=== PATIENT | female | born 1950 | race Two or more races ===

== ENCOUNTER 2021-10-12 18:57 | Inpatient (IN) | payer OTHER, MEDICAID ==
[~2021-10-12] VITALS: Ht 147.3 cm; Wt 106.8 kg
[2021-10-12] MEDS ORDERED: methylPREDNISolone SOD SUCC 125 MG/2 ML VL IV ONE (19:15)
[2021-10-12 20:27] LABS: Basophils # (auto) 0 10 ^3/uL (0-0.2); Basophils % (auto) 0.6 % (0.0-2.0); Eosinophils # (auto) 0.2 10 ^3/uL (0-0.8); Eosinophils % (auto) 3.2 % (0.0-7.0); Hematocrit 30.7 % (36.0-46.0); Hemoglobin 10.1 g/dL (12.2-16.2); Lymphocytes # (auto) 1.5 10 ^3/uL (0.4-5.4); Lymphocytes % (auto) 28.1 % (10.0-50.0); Mean Corpuscular Hemoglobin 28.5 pg (28.0-32.0); Mean Corpuscular Hgb Conc. 32.9 g/dL (32.0-36.0); Mean Corpuscular Volume 86.7 fL (80.0-100.0); Monocytes # (auto) 0.4 10 ^3/uL (0-1.3); Monocytes % (auto) 6.6 % (0.0-12.0); Neutrophils # (auto) 3.3 10 ^3/uL (1.6-8.6); Neutrophils % (auto) 61.5 % (37.0-80.0); Nucleated Red Blood Cells % 0.1 %; Red Blood Cells 3.53 10^6/uL (4.0-5.20); Red Cell Distribution Width 13.4 % (11.8-14.3); White Blood Cell 5.3 10^3/uL (4.4-10.8)
[2021-10-12] MEDS ORDERED: FUROSEMIDE 40 MG/4 ML VIAL IV ONE (20:30)
[2021-10-12 20:51] LABS: CRP High Sensitivity 8.02 mg/dL (< 0.3)
[2021-10-12 21:03] LABS: Albumin 2.8 g/dL (3.4-5.0); Calcium 8.5 mg/dL (8.5-10.1); Potassium 4.2 mmol/L (3.5-5.1)
[2021-10-12 21:06] LABS: Bilirubin, Total 0.2 mg/dL (0.2-1.0); Total Protein 7.4 g/dL (6.4-8.2)
[2021-10-12] MEDS ORDERED: IOHEXOL 350 MG/ML 100ML IJ ONE (21:54)
[2021-10-12] MEDS ORDERED: NITROGLYCERIN 0.4 MG SL TAB SL PRN (23:30)
[2021-10-12] MEDS ORDERED: TEMAZEPAM 15 MG CAP PO PRN (23:30)
[2021-10-12] MEDS ORDERED: ACETAMINOPHEN 325 MG TAB PO PRN (23:30)
[2021-10-12] MEDS ORDERED: DEXTROSE (50%) 50ML SYRG IV PRN (23:30)
[2021-10-12] MEDS ORDERED: MORPHINE SULFATE INJECTION 2 MG/ML SYRG IV PRN (23:30)
[2021-10-12] MEDS ORDERED: ONDANSETRON HCL 4 MG/2 ML VIAL IV PRN (23:30)
[2021-10-12] MEDS ORDERED: ALBUTEROL SULF 2.5 MG/0.5ML(0.5%) NEB SOLN NEB PRN (23:30)
[2021-10-13 01:45] LABS: Urine Bacteria NONE SEEN /hpf (None Seen); Urine Blood Negative /uL (Negative); Urine Specific Gravity 1.018 (1.001-1.035); Urine WBC 18 /hpf (0 - 5); Urine WBC Clumps PRESENT /hpf (None Seen)
[2021-10-13] MEDS: AZITHROMYCIN 500MG/ 250ML 250 ML IV SCH ×2 (02:30→21:42)
[2021-10-13] MEDS ORDERED: ALBUTEROL SULF HFA 90MCG INH 200DOSE IN PRN (04:45)
[2021-10-13] MEDS: FUROSEMIDE 20 MG/2 ML VIAL IV SCH ×2 (06:47→21:41)
[2021-10-13] MEDS: ACCU-CHEK COMFORT CURVE STRIP VI SCH ×3 (07:12→23:16)
[2021-10-13] MEDS: InsuLIN REG 1unit/0.01ml Soln (100units/ml) SC SCH ×3 (07:12→23:24)
[2021-10-13 07:34] LABS: Basophils # (auto) 0 10 ^3/uL (0-0.2); Basophils % (auto) 0.3 % (0.0-2.0); Eosinophils # (auto) 0 10 ^3/uL (0-0.8); Eosinophils % (auto) 0.2 % (0.0-7.0); Hematocrit 32.9 % (36.0-46.0); Hemoglobin 11.2 g/dL (12.2-16.2); Lymphocytes # (auto) 0.8 10 ^3/uL (0.4-5.4); Lymphocytes % (auto) 16.9 % (10.0-50.0); Mean Corpuscular Hemoglobin 29.3 pg (28.0-32.0); Mean Corpuscular Volume 86.2 fL (80.0-100.0); Monocytes # (auto) 0.1 10 ^3/uL (0-1.3); Monocytes % (auto) 1.4 % (0.0-12.0); Neutrophils % (auto) 81.2 % (37.0-80.0); Nucleated Red Blood Cells % 0.1 %; Red Blood Cells 3.82 10^6/uL (4.0-5.20); Red Cell Distribution Width 13.4 % (11.8-14.3); White Blood Cell 4.9 10^3/uL (4.4-10.8)
[2021-10-13 07:46] LABS: Albumin 3.2 g/dL (3.4-5.0); Calcium 9.3 mg/dL (8.5-10.1); Potassium 3.8 mmol/L (3.5-5.1)
[2021-10-13 07:50] LABS: Bilirubin, Total 0.3 mg/dL (0.2-1.0); Total Protein 8.6 g/dL (6.4-8.2)
[2021-10-13] MEDS ORDERED: PANTOPRAZOLE 40 MG TAB PO SCH (10:00)
[2021-10-13] MEDS: CARVEDILOL 3.125 MG TAB PO SCH ×2 (10:30→21:42)
[2021-10-13] MEDS: ENOXAPARIN SOD 40 MG/0.4 ML SYRINGE SC SCH (10:31)
[2021-10-13] MEDS ORDERED: SOD CHL 0.9%/ KCL 40MEQ 1,000 ML IV SCH (10:45)
[2021-10-13] MEDS ORDERED: CEFTRIAXONE SODIUM 2 GM in D5W 5% 50 ML IV ONE (11:00)
[2021-10-13] MEDS ORDERED: CHOLECALCIFEROL (VITD3) 2,000 UNIT CAP/TAB PO ONE (14:52)
[2021-10-13] MEDS ORDERED: ZINC SULFATE 220mg CAP or TAB PO ONE (14:52)
[2021-10-13] MEDS ORDERED: DexAMETHasone SOD PHOS 10MG/1ML VIAL INJ IV ONE (14:52)
[2021-10-13] MEDS ORDERED: IVERMECTIN 3 MG TAB PO ONE (14:52)
[2021-10-13] MEDS ORDERED: ASCORBIC ACID 1,000 MG TAB PO ONE (14:52)
[2021-10-13] MEDS ORDERED: DEXTROSE (50%) 50ML SYRG IV PRN (15:00)
[2021-10-13] MEDS ORDERED: REMDESIVIR PER PHARMACY 0 ML IV SCH (15:00)
[2021-10-13] MEDS ORDERED: REMDESIVIR 200 MG in NS 210ml LOADING DOSE ADULT IV ONE (17:00)
[2021-10-13 20:00] VITALS: BP 132/70
[2021-10-13] MEDS: BUDESONIDE (INHALATION) 180 MCG IH IN SCH (20:28)
[2021-10-13] MEDS: ALBUTEROL SULF HFA 90MCG INH 200DOSE IN PRN (20:29)
[2021-10-13 21:30] VITALS: BP 132/70
[2021-10-13] MEDS: INSULIN LANTUS (GLARGINE) 1 /0.01ml (100units/ml) SC SCH (22:55)
[2021-10-14 00:55] VITALS: BP 132/70
[2021-10-14 05:00] VITALS: BP 140/73
[2021-10-14] MEDS: FUROSEMIDE 20 MG/2 ML VIAL IV SCH (05:30)
[2021-10-14] MEDS: ACCU-CHEK COMFORT CURVE STRIP VI SCH ×3 (05:41→17:45)
[2021-10-14] MEDS: InsuLIN REG 1unit/0.01ml Soln (100units/ml) SC SCH ×4 (05:53→23:06)
[2021-10-14 07:51] LABS: Basophils # (auto) 0 10 ^3/uL (0-0.2); Basophils % (auto) 0.2 % (0.0-2.0); Eosinophils # (auto) 0 10 ^3/uL (0-0.8); Hematocrit 32.3 % (36.0-46.0); Hemoglobin 10.6 g/dL (12.2-16.2); Lymphocytes # (auto) 1.4 10 ^3/uL (0.4-5.4); Mean Corpuscular Hemoglobin 28.4 pg (28.0-32.0); Mean Corpuscular Hgb Conc. 32.9 g/dL (32.0-36.0); Mean Corpuscular Volume 86.3 fL (80.0-100.0); Monocytes # (auto) 0.4 10 ^3/uL (0-1.3); Monocytes % (auto) 7.7 % (0.0-12.0); Neutrophils # (auto) 3.6 10 ^3/uL (1.6-8.6); Neutrophils % (auto) 66.1 % (37.0-80.0); Red Blood Cells 3.74 10^6/uL (4.0-5.20); Red Cell Distribution Width 13.5 % (11.8-14.3); White Blood Cell 5.4 10^3/uL (4.4-10.8)
[2021-10-14 08:07] LABS: Albumin 2.8 g/dL (3.4-5.0); Calcium 9.1 mg/dL (8.5-10.1); Magnesium 2.4 mg/dL (1.6-2.6)
[2021-10-14 08:11] LABS: INR 1.07 (0.9-1.15)
[2021-10-14 08:23] LABS: BUN/Creatinine Ratio 25.7; Bilirubin, Total 0.2 mg/dL (0.2-1.0); CRP High Sensitivity 4.73 mg/dL (< 0.3); Total Protein 7.9 g/dL (6.4-8.2)
[2021-10-14 08:26] LABS: Thyroid Stimulating Hormone 0.28 uIU/mL (0.358-3.74)
[2021-10-14 08:30] VITALS: BP 143/64
[2021-10-14] MEDS: DexAMETHasone SOD PHOS 10MG/1ML VIAL INJ IV SCH (09:31)
[2021-10-14] MEDS: ZINC SULFATE 220mg CAP or TAB PO SCH (09:31)
[2021-10-14] MEDS: CHOLECALCIFEROL (VITD3) 2,000 UNIT CAP/TAB PO SCH (09:31)
[2021-10-14] MEDS: IVERMECTIN 3 MG TAB PO SCH (09:31)
[2021-10-14] MEDS: ENOXAPARIN SOD 40 MG/0.4 ML SYRINGE SC SCH (09:32)
[2021-10-14] MEDS: ASCORBIC ACID 1,000 MG TAB PO SCH (09:32)
[2021-10-14] MEDS: CARVEDILOL 3.125 MG TAB PO SCH ×2 (09:42→22:59)
[2021-10-14] MEDS: BUDESONIDE (INHALATION) 180 MCG IH IN SCH ×2 (10:00→19:34)
[2021-10-14] MEDS ORDERED: ATO40T PO (12:20)
[2021-10-14] MEDS ORDERED: OXYB5TAB61 PO (12:20)
[2021-10-14] MEDS ORDERED: HYDR200T36 PO (12:20)
[2021-10-14] MEDS ORDERED: PROC10TA2 PO (12:20)
[2021-10-14] MEDS ORDERED: BIOT50007 PO (12:20)
[2021-10-14] MEDS ORDERED: CITA-77 PO (12:20)
[2021-10-14] MEDS ORDERED: ASCO500T11 PO (12:20)
[2021-10-14] MEDS ORDERED: GABA300C10 PO (12:20)
[2021-10-14] MEDS ORDERED: VITA180C PO (12:20)
[2021-10-14] MEDS ORDERED: ZINC50CA2 PO (12:20)
[2021-10-14] MEDS ORDERED: PANT40TA2 PO (12:20)
[2021-10-14] MEDS ORDERED: FURO1TAB31 PO (12:20)
[2021-10-14] MEDS ORDERED: MECL12.514 PO (12:20)
[2021-10-14] MEDS ORDERED: MULT-733 PO (12:20)
[2021-10-14] MEDS ORDERED: TOPI25TA84 PO (12:20)
[2021-10-14] MEDS ORDERED: CYAN100056 PO (12:20)
[2021-10-14] MEDS ORDERED: LORA-622 PO (12:20)
[2021-10-14] MEDS ORDERED: INSU1INJ19 SC (12:20)
[2021-10-14] MEDS ORDERED: ASPI-543 PO (12:20)
[2021-10-14] MEDS ORDERED: CHOL1TAB30 PO (12:20)
[2021-10-14] MEDS ORDERED: LOSA-39 PO (12:20)
[2021-10-14] MEDS: CEFTRIAXONE SODIUM 2 GM in D5W 5% 50 ML IV SCH (12:22)
[2021-10-14 12:30] VITALS: BP 126/67
[2021-10-14] MEDS ORDERED: guaiFENesin-DM 100/10mg/5ml SYR PO PRN (12:30)
[2021-10-14] MEDS: ALBUTEROL SULF HFA 90MCG INH 200DOSE IN PRN (13:58)
[2021-10-14 17:43] VITALS: BP 138/63
[2021-10-14] MEDS: REMDESIVIR 100mg 100 MG in SODIUM CHL 0.9% 230 ML IV SCH (17:45)
[2021-10-14 21:08] VITALS: BP 143/74
[2021-10-14] MEDS: AZITHROMYCIN 500MG/ 250ML 250 ML IV SCH (22:56)
[2021-10-14] MEDS: INSULIN LANTUS (GLARGINE) 1 /0.01ml (100units/ml) SC SCH (23:06)
[2021-10-15] MEDS: ACCU-CHEK COMFORT CURVE STRIP VI SCH ×5 (00:02→23:17)
[2021-10-15 04:50] VITALS: BP 148/69
[2021-10-15] MEDS: InsuLIN REG 1unit/0.01ml Soln (100units/ml) SC SCH ×3 (06:28→17:58)
[2021-10-15 07:10] LABS: Potassium 3.7 mmol/L (3.5-5.1)
[2021-10-15 07:15] LABS: Albumin 2.8 g/dL (3.4-5.0); BUN/Creatinine Ratio 32.1; Bilirubin, Total 0.2 mg/dL (0.2-1.0); Calcium 9.1 mg/dL (8.5-10.1); Total Protein 7.6 g/dL (6.4-8.2)
[2021-10-15] MEDS: BUDESONIDE (INHALATION) 180 MCG IH IN SCH ×2 (08:31→19:04)
[2021-10-15] MEDS: ALBUTEROL SULF HFA 90MCG INH 200DOSE IN PRN ×2 (08:31→19:04)
[2021-10-15 08:40] VITALS: BP 143/82
[2021-10-15] MEDS: CARVEDILOL 3.125 MG TAB PO SCH ×2 (09:50→23:17)
[2021-10-15] MEDS: ZINC SULFATE 220mg CAP or TAB PO SCH (09:50)
[2021-10-15] MEDS: IVERMECTIN 3 MG TAB PO SCH (09:50)
[2021-10-15] MEDS: CHOLECALCIFEROL (VITD3) 2,000 UNIT CAP/TAB PO SCH (09:51)
[2021-10-15] MEDS: ASCORBIC ACID 1,000 MG TAB PO SCH (09:54)
[2021-10-15] MEDS: DexAMETHasone SOD PHOS 10MG/1ML VIAL INJ IV SCH (09:55)
[2021-10-15] MEDS: FUROSEMIDE 20 MG/2 ML VIAL IV SCH (09:55)
[2021-10-15] MEDS: CEFTRIAXONE SODIUM 2 GM in D5W 5% 50 ML IV SCH (09:57)
[2021-10-15] MEDS: ENOXAPARIN SOD 40 MG/0.4 ML SYRINGE SC SCH (09:58)
[2021-10-15 13:00] VITALS: BP 131/77
[2021-10-15] MEDS ORDERED: DEXT1SYP9 PO (13:55)
[2021-10-15] MEDS ORDERED: LEVO750T8 PO (13:55)
[2021-10-15] MEDS ORDERED: DEX4T PO (13:55)
[2021-10-15] MEDS ORDERED: ALBUAER3 IN (13:55)
[2021-10-15] MEDS: REMDESIVIR 100mg 100 MG in SODIUM CHL 0.9% 230 ML IV SCH (16:00)
[2021-10-15 16:40] VITALS: BP 132/65
[2021-10-15] MEDS: AZITHROMYCIN 500MG/ 250ML 250 ML IV SCH (23:16)
[2021-10-15] MEDS: INSULIN LANTUS (GLARGINE) 1 /0.01ml (100units/ml) SC SCH (23:37)
[2021-10-16] MEDS: ACCU-CHEK COMFORT CURVE STRIP VI SCH ×5 (00:40→23:48)
[2021-10-16] MEDS: InsuLIN REG 1unit/0.01ml Soln (100units/ml) SC SCH ×5 (00:43→23:48)
[2021-10-16 05:00] VITALS: BP 148/76
[2021-10-16 05:28] LABS: Hematocrit 33.6 % (36.0-46.0); Hemoglobin 11.3 g/dL (12.2-16.2)
[2021-10-16] MEDS: BUDESONIDE (INHALATION) 180 MCG IH IN SCH ×2 (06:00→20:55)
[2021-10-16 06:01] LABS: Albumin 2.9 g/dL (3.4-5.0); BUN/Creatinine Ratio 32.6; Bilirubin, Total 0.3 mg/dL (0.2-1.0); CRP High Sensitivity 1.11 mg/dL (< 0.3); Calcium 9.3 mg/dL (8.5-10.1); Magnesium 3.3 mg/dL (1.6-2.6); Total Protein 7.5 g/dL (6.4-8.2)
[2021-10-16] MEDS: ALBUTEROL SULF HFA 90MCG INH 200DOSE IN PRN ×2 (06:07→20:55)
[2021-10-16 08:00] VITALS: BP 159/78
[2021-10-16] MEDS: hydrALAZINE HCL 20 MG/ML VL IV PRN (08:21)
[2021-10-16] MEDS: FUROSEMIDE 20 MG/2 ML VIAL IV SCH (08:47)
[2021-10-16] MEDS: CHOLECALCIFEROL (VITD3) 2,000 UNIT CAP/TAB PO SCH (08:47)
[2021-10-16] MEDS: DexAMETHasone SOD PHOS 10MG/1ML VIAL INJ IV SCH (08:47)
[2021-10-16] MEDS: IVERMECTIN 3 MG TAB PO SCH (08:47)
[2021-10-16] MEDS: CARVEDILOL 3.125 MG TAB PO SCH ×2 (08:48→21:56)
[2021-10-16] MEDS: ZINC SULFATE 220mg CAP or TAB PO SCH (08:49)
[2021-10-16] MEDS: ENOXAPARIN SOD 40 MG/0.4 ML SYRINGE SC SCH (08:49)
[2021-10-16] MEDS: ASCORBIC ACID 1,000 MG TAB PO SCH (08:49)
[2021-10-16] MEDS: CEFTRIAXONE SODIUM 2 GM in D5W 5% 50 ML IV SCH (10:00)
[2021-10-16] MEDS ORDERED: LEVO750T8 PO (11:54)
[2021-10-16 12:00] VITALS: BP 115/69
[2021-10-16] MEDS: REMDESIVIR 100mg 100 MG in SODIUM CHL 0.9% 230 ML IV SCH (14:56)
[2021-10-16 16:00] VITALS: BP 122/58
[2021-10-16] MEDS: AZITHROMYCIN 500MG/ 250ML 250 ML IV SCH ×2 (21:27→21:37)
[2021-10-16] MEDS: INSULIN LANTUS (GLARGINE) 1 /0.01ml (100units/ml) SC SCH (21:57)
[2021-10-16 22:00] VITALS: BP 139/65
[2021-10-17 05:00] VITALS: BP 147/70
[2021-10-17 05:38] LABS: Calcium 9.4 mg/dL (8.5-10.1); Potassium 3.8 mmol/L (3.5-5.1)
[2021-10-17] MEDS: BUDESONIDE (INHALATION) 180 MCG IH IN SCH (05:40)
[2021-10-17] MEDS: ALBUTEROL SULF HFA 90MCG INH 200DOSE IN PRN (05:41)
[2021-10-17 05:42] LABS: BUN/Creatinine Ratio 34.5; Bilirubin, Total 0.3 mg/dL (0.2-1.0); Total Protein 7.3 g/dL (6.4-8.2)
[2021-10-17] MEDS: ACCU-CHEK COMFORT CURVE STRIP VI SCH ×2 (05:48→12:44)
[2021-10-17] MEDS: InsuLIN REG 1unit/0.01ml Soln (100units/ml) SC SCH ×2 (05:52→12:46)
[2021-10-17 08:39] VITALS: BP_SYST 123; BP_SYST 139; BP_DIAS 56; BP_DIAS 65
[2021-10-17 08:57] VITALS: BP 170/68
[2021-10-17] MEDS: ZINC SULFATE 220mg CAP or TAB PO SCH (09:20)
[2021-10-17] MEDS: DexAMETHasone SOD PHOS 10MG/1ML VIAL INJ IV SCH (09:20)
[2021-10-17] MEDS: FUROSEMIDE 20 MG/2 ML VIAL IV SCH (09:20)
[2021-10-17] MEDS: CARVEDILOL 3.125 MG TAB PO SCH (09:21)
[2021-10-17] MEDS: IVERMECTIN 3 MG TAB PO SCH (09:21)
[2021-10-17] MEDS: ENOXAPARIN SOD 40 MG/0.4 ML SYRINGE SC SCH (09:22)
[2021-10-17] MEDS: ASCORBIC ACID 1,000 MG TAB PO SCH (09:22)
[2021-10-17] MEDS: CHOLECALCIFEROL (VITD3) 2,000 UNIT CAP/TAB PO SCH (09:22)
[2021-10-17] MEDS: CEFTRIAXONE SODIUM 2 GM in D5W 5% 50 ML IV SCH (09:24)
[2021-10-17] MEDS: hydrALAZINE HCL 20 MG/ML VL IV PRN (09:24)
[2021-10-17 13:30] VITALS: BP 125/50
[2021-10-17] MEDS ORDERED: FLUC200T35 PO (13:55)
== END 2021-10-17 14:30 | disposition home health service (06) | DRG 871 ==
LOC: ER 18:57 → TELE 23:24 → TELE-EAST 10-13 18:35
PROVIDERS: ADMIT Nurse Practitioner; ATTEND Internal Medicine
PROC: XW033E5 Introduction of Remdesivir Anti-infective into Peripheral Vein, Percutaneous Approach, New Technology Group 5 (ICD-10-PCS; principal; 2021-10-13)
DX: A41.89 Other specified sepsis (principal); I50.33 Acute on chronic diastolic (congestive) heart failure; U07.1 COVID-19; J12.82 Pneumonia due to coronavirus disease 2019; J96.20 Acute and chronic respiratory failure, unspecified whether with hypoxia or hypercapnia; J44.1 Chronic obstructive pulmonary disease with (acute) exacerbation; N39.0 Urinary tract infection, site not specified; J44.0 Chronic obstructive pulmonary disease with (acute) lower respiratory infection; E66.01 Morbid (severe) obesity due to excess calories; E11.9 Type 2 diabetes mellitus without complications; D64.9 Anemia, unspecified; R91.8 Other nonspecific abnormal finding of lung field; B96.20 Unspecified Escherichia coli [E. coli] as the cause of diseases classified elsewhere; D89.839 Cytokine release syndrome, grade unspecified; R79.89 Other specified abnormal findings of blood chemistry; E78.5 Hyperlipidemia, unspecified; I11.0 Hypertensive heart disease with heart failure; E11.42 Type 2 diabetes mellitus with diabetic polyneuropathy; Z83.3 Family history of diabetes mellitus; Z90.710 Acquired absence of both cervix and uterus; Z88.8 Allergy status to other drugs, medicaments and biological substances; Z88.1 Allergy status to other antibiotic agents
CPT/HCPCS: 36415; 71045; 71275; 80053; 80061; 81001; 82306; 82728; 82962; 83036; 83605; 83615; 83735; 83880; 84436; 84443; 84481; 84484; 85014; 85018; 85025; 85379; 85610; 86141; 87040; 87077; 87086; 87088; 87186; 87426; 93005; 93306; 93970; 94640; 96365; 96367; 96372; 96375; 96376; 99291; G0378; J0696; J1100; J1815; J7060

== ENCOUNTER 2021-11-11 17:10 | Inpatient (IN) | payer OTHER, MEDICAID ==
[~2021-11-11] VITALS: Ht 167.6 cm; Wt 62.6 kg
[~2021-11-11 17:10] MED LIST: ALBUAER3 IN; ASCO500T11 PO; ASPI-543 PO; ATO40T PO; BIOT50007 PO; CHOL1TAB30 PO; CITA-77 PO; CYAN100056 PO; DEX4T PO; DEXT1SYP9 PO; FLUC200T35 PO; FURO1TAB31 PO; GABA300C10 PO; HYDR200T36 PO; INSU1INJ19 SC; LEVO750T8 PO; LORA-622 PO; LOSA-39 PO; MECL12.514 PO; MULT-733 PO; OXYB5TAB61 PO; PANT40TA2 PO; PROC10TA2 PO; TOPI25TA84 PO; VITA180C PO; ZINC50CA2 PO
[2021-11-11] MEDS ORDERED: methylPREDNISolone SOD SUCC 125 MG/2 ML VL IV ONE (17:45)
[2021-11-11 18:31] LABS: Basophils # (auto) 0.1 10 ^3/uL (0-0.2); Basophils % (auto) 0.8 % (0.0-2.0); Eosinophils # (auto) 0.2 10 ^3/uL (0-0.8); Eosinophils % (auto) 2.2 % (0.0-7.0); Hematocrit 32.1 % (36.0-46.0); Hemoglobin 10.8 g/dL (12.2-16.2); Lymphocytes # (auto) 2.3 10 ^3/uL (0.4-5.4); Lymphocytes % (auto) 31.9 % (10.0-50.0); Mean Corpuscular Hemoglobin 30.1 pg (28.0-32.0); Mean Corpuscular Hgb Conc. 33.8 g/dL (32.0-36.0); Monocytes # (auto) 0.3 10 ^3/uL (0-1.3); Monocytes % (auto) 3.5 % (0.0-12.0); Neutrophils # (auto) 4.5 10 ^3/uL (1.6-8.6); Neutrophils % (auto) 61.6 % (37.0-80.0); Red Cell Distribution Width 15.6 % (11.8-14.3); White Blood Cell 7.2 10^3/uL (4.4-10.8)
[2021-11-11 18:50] LABS: Albumin 3.2 g/dL (3.4-5.0); Calcium 9.1 mg/dL (8.5-10.1); Potassium 3.7 mmol/L (3.5-5.1)
[2021-11-11 18:58] LABS: BUN/Creatinine Ratio 23.2; Bilirubin, Total 0.3 mg/dL (0.2-1.0); CRP High Sensitivity 0.86 mg/dL (< 0.3); Total Protein 6.9 g/dL (6.4-8.2)
[2021-11-11] MEDS ORDERED: FUROSEMIDE 40 MG/4 ML VIAL IV ONE (19:15)
[2021-11-11] MEDS ORDERED: NITROGLYCERIN 0.4 MG SL TAB SL PRN (20:30)
[2021-11-11] MEDS ORDERED: DEXTROSE (50%) 50ML SYRG IV PRN (20:30)
[2021-11-11] MEDS ORDERED: IPRATROPIUM BROM 0.5 MG/2.5ML INH SOL NEB PRN (20:30)
[2021-11-11] MEDS ORDERED: AZITHROMYCIN 250 MG TAB PO ONE (20:30)
[2021-11-11] MEDS ORDERED: ALBUTEROL SULF 2.5 MG/0.5ML(0.5%) NEB SOLN NEB PRN (20:30)
[2021-11-11] MEDS ORDERED: MORPHINE SULFATE INJECTION 2 MG/ML SYRG IV PRN (20:30)
[2021-11-11 20:35] VITALS: BP 112/40
[2021-11-11] MEDS: FUROSEMIDE 40 MG/4 ML VIAL IV SCH (22:03)
[2021-11-11 22:11] LABS: Urine Bacteria FEW /hpf (None Seen); Urine Blood Negative /uL (Negative); Urine Specific Gravity 1.008 (1.001-1.035); Urine WBC 2 /hpf (0 - 5)
[2021-11-11] MEDS: OXYBUTYNIN CHL 5 MG TAB PO SCH (22:11)
[2021-11-11] MEDS: methylPREDNISolone SOD SUCC 125 MG/2 ML VL IV SCH (22:11)
[2021-11-11] MEDS: ATORVASTATIN 20 MG TAB PO SCH (22:11)
[2021-11-11] MEDS: InsuLIN REG 1unit/0.01ml Soln (100units/ml) SC SCH (22:12)
[2021-11-11] MEDS: ACCU-CHEK COMFORT CURVE STRIP VI SCH (22:14)
[2021-11-11] MEDS ORDERED: IOHEXOL 350 MG/ML 100ML IJ ONE (22:41)
[2021-11-11] MEDS: IPRATROPIUM BROM 0.5 MG/2.5ML INH SOL NEB SCH (22:54)
[2021-11-11] MEDS: ALBUTEROL SULF 2.5 MG/0.5ML(0.5%) NEB SOLN NEB SCH (22:54)
[2021-11-11 23:45] VITALS: BP 136/59
[2021-11-12 05:00] VITALS: BP 119/58
[2021-11-12] MEDS: methylPREDNISolone SOD SUCC 125 MG/2 ML VL IV SCH ×3 (06:03→22:32)
[2021-11-12] MEDS: InsuLIN REG 1unit/0.01ml Soln (100units/ml) SC SCH ×4 (06:04→22:00)
[2021-11-12] MEDS: ACCU-CHEK COMFORT CURVE STRIP VI SCH ×4 (06:07→22:37)
[2021-11-12] MEDS: IPRATROPIUM BROM 0.5 MG/2.5ML INH SOL NEB SCH ×4 (06:32→23:56)
[2021-11-12] MEDS: ALBUTEROL SULF 2.5 MG/0.5ML(0.5%) NEB SOLN NEB SCH ×4 (06:32→23:56)
[2021-11-12 06:42] LABS: Basophils # (auto) 0 10 ^3/uL (0-0.2); Basophils % (auto) 0.1 % (0.0-2.0); Eosinophils # (auto) 0 10 ^3/uL (0-0.8); Hematocrit 33.7 % (36.0-46.0); Hemoglobin 11.3 g/dL (12.2-16.2); Lymphocytes # (auto) 0.9 10 ^3/uL (0.4-5.4); Lymphocytes % (auto) 13.3 % (10.0-50.0); Mean Corpuscular Hemoglobin 29.7 pg (28.0-32.0); Mean Corpuscular Hgb Conc. 33.5 g/dL (32.0-36.0); Mean Corpuscular Volume 88.7 fL (80.0-100.0); Monocytes # (auto) 0.1 10 ^3/uL (0-1.3); Monocytes % (auto) 0.8 % (0.0-12.0); Neutrophils # (auto) 5.5 10 ^3/uL (1.6-8.6); Neutrophils % (auto) 85.8 % (37.0-80.0); Nucleated Red Blood Cells % 0.1 %; Red Cell Distribution Width 15.7 % (11.8-14.3); White Blood Cell 6.4 10^3/uL (4.4-10.8)
[2021-11-12 07:17] LABS: Albumin 3.3 g/dL (3.4-5.0); Potassium 3.7 mmol/L (3.5-5.1)
[2021-11-12 07:34] LABS: Bilirubin, Total 0.4 mg/dL (0.2-1.0); Total Protein 7.3 g/dL (6.4-8.2)
[2021-11-12 09:00] VITALS: BP 131/60
[2021-11-12] MEDS: ASPirin-EC 81 mg tab PO SCH (09:22)
[2021-11-12] MEDS: OXYBUTYNIN CHL 5 MG TAB PO SCH ×2 (09:22→22:32)
[2021-11-12] MEDS: FUROSEMIDE 40 MG/4 ML VIAL IV SCH ×2 (09:23→18:33)
[2021-11-12] MEDS: AZITHROMYCIN 250 MG TAB PO SCH (09:24)
[2021-11-12] MEDS: CHOLECALCIFEROL (VITD3) 1,000UNIT=25mCg TAB PO SCH (09:24)
[2021-11-12] MEDS: MULTIPLE VITAMINS W/ MINERALS TAB PO SCH (09:24)
[2021-11-12] MEDS: PANTOPRAZOLE 40 MG TAB PO SCH (09:24)
[2021-11-12] MEDS: ENOXAPARIN SOD 40 MG/0.4 ML SYRINGE SC SCH (09:25)
[2021-11-12] MEDS: INSULIN GLARGINE SC SCH (09:25)
[2021-11-12 13:00] VITALS: BP 141/66
[2021-11-12 17:00] VITALS: BP 131/55
[2021-11-12] MEDS: CITALOPRAM HYDROBR 20 MG TAB PO SCH (18:33)
[2021-11-12] MEDS: LOSARTAN POTASSIUM 50 MG TAB PO SCH (18:33)
[2021-11-12 20:00] VITALS: BP 131/55
[2021-11-12 21:48] VITALS: BP 145/64
[2021-11-12] MEDS: ATORVASTATIN 20 MG TAB PO SCH (22:32)
[2021-11-12] MEDS: INSULIN LANTUS (GLARGINE) 1 /0.01ml (100units/ml) SC SCH (22:36)
[2021-11-13 04:48] VITALS: BP 137/57
[2021-11-13] MEDS: FUROSEMIDE 40 MG/4 ML VIAL IV SCH ×2 (05:43→17:58)
[2021-11-13] MEDS: methylPREDNISolone SOD SUCC 125 MG/2 ML VL IV SCH (05:43)
[2021-11-13] MEDS: InsuLIN REG 1unit/0.01ml Soln (100units/ml) SC SCH ×5 (05:44→23:48)
[2021-11-13] MEDS: INSULIN LANTUS (GLARGINE) 1 /0.01ml (100units/ml) SC SCH ×2 (05:45→23:48)
[2021-11-13] MEDS: ACCU-CHEK COMFORT CURVE STRIP VI SCH ×5 (05:47→23:48)
[2021-11-13] MEDS: IPRATROPIUM BROM 0.5 MG/2.5ML INH SOL NEB SCH ×3 (06:13→18:32)
[2021-11-13] MEDS: ALBUTEROL SULF 2.5 MG/0.5ML(0.5%) NEB SOLN NEB SCH ×3 (06:13→18:33)
[2021-11-13 09:00] VITALS: BP 138/62
[2021-11-13] MEDS: PANTOPRAZOLE 40 MG TAB PO SCH (09:34)
[2021-11-13] MEDS: CHOLECALCIFEROL (VITD3) 1,000UNIT=25mCg TAB PO SCH (09:34)
[2021-11-13] MEDS: MULTIPLE VITAMINS W/ MINERALS TAB PO SCH (09:34)
[2021-11-13] MEDS: ASPirin-EC 81 mg tab PO SCH (09:34)
[2021-11-13] MEDS: OXYBUTYNIN CHL 5 MG TAB PO SCH ×2 (09:35→21:46)
[2021-11-13] MEDS: ENOXAPARIN SOD 40 MG/0.4 ML SYRINGE SC SCH (09:35)
[2021-11-13] MEDS: AZITHROMYCIN 250 MG TAB PO SCH (10:47)
[2021-11-13] MEDS: HYDROcodone-ACET 5/325MG TAB PO PRN (10:47)
[2021-11-13] MEDS: INSULIN GLARGINE SC SCH (10:50)
[2021-11-13] MEDS ORDERED: DEXTROSE (50%) 50ML SYRG IV PRN (12:15)
[2021-11-13] MEDS ORDERED: ALBUTEROL SULF 2.5 MG/0.5ML(0.5%) NEB SOLN NEB PRN (12:30)
[2021-11-13 13:00] VITALS: BP 57/62
[2021-11-13] MEDS: methylPREDNISolone SOD SUCC 40 MG/ML VL IV SCH ×2 (13:43→21:46)
[2021-11-13 17:00] VITALS: BP 143/59
[2021-11-13] MEDS: CITALOPRAM HYDROBR 20 MG TAB PO SCH (17:58)
[2021-11-13] MEDS: LOSARTAN POTASSIUM 50 MG TAB PO SCH (17:58)
[2021-11-13] MEDS: guaiFENesin-DM 100/10mg/5ml SYR PO PRN (18:06)
[2021-11-13] MEDS: BUDESONIDE (INHALATION) 0.5 MG/2 ML NEB NEB SCH (18:09)
[2021-11-13 21:25] VITALS: BP 127/56
[2021-11-13] MEDS: ATORVASTATIN 20 MG TAB PO SCH (21:46)
[2021-11-14] MEDS: ALBUTEROL SULF 2.5 MG/0.5ML(0.5%) NEB SOLN NEB SCH ×4 (00:07→18:09)
[2021-11-14] MEDS: BUDESONIDE (INHALATION) 0.5 MG/2 ML NEB NEB SCH ×2 (00:07→10:00)
[2021-11-14] MEDS: IPRATROPIUM BROM 0.5 MG/2.5ML INH SOL NEB SCH ×4 (00:07→18:09)
[2021-11-14] MEDS: HYDROcodone-ACET 5/325MG TAB PO PRN ×3 (00:13→21:58)
[2021-11-14] MEDS: guaiFENesin-DM 100/10mg/5ml SYR PO PRN (00:14)
[2021-11-14] MEDS: ACCU-CHEK COMFORT CURVE STRIP VI SCH ×6 (03:43→23:56)
[2021-11-14] MEDS: InsuLIN REG 1unit/0.01ml Soln (100units/ml) SC SCH ×6 (03:44→23:55)
[2021-11-14 05:15] VITALS: BP 149/71
[2021-11-14 06:16] LABS: Potassium 4.1 mmol/L (3.5-5.1)
[2021-11-14] MEDS: INSULIN LANTUS (GLARGINE) 1 /0.01ml (100units/ml) SC SCH ×2 (06:17→23:55)
[2021-11-14] MEDS: FUROSEMIDE 40 MG/4 ML VIAL IV SCH ×2 (06:17→17:41)
[2021-11-14 06:28] LABS: BUN/Creatinine Ratio 35.4; Calcium 9.6 mg/dL (8.5-10.1); Magnesium 2.7 mg/dL (1.6-2.6)
[2021-11-14] MEDS: ASPirin-EC 81 mg tab PO SCH (08:07)
[2021-11-14] MEDS: CHOLECALCIFEROL (VITD3) 1,000UNIT=25mCg TAB PO SCH (08:07)
[2021-11-14] MEDS: MULTIPLE VITAMINS W/ MINERALS TAB PO SCH (08:07)
[2021-11-14] MEDS: OXYBUTYNIN CHL 5 MG TAB PO SCH ×2 (08:08→21:57)
[2021-11-14] MEDS: AZITHROMYCIN 250 MG TAB PO SCH (08:08)
[2021-11-14] MEDS: PANTOPRAZOLE 40 MG TAB PO SCH (08:08)
[2021-11-14] MEDS: methylPREDNISolone SOD SUCC 40 MG/ML VL IV SCH ×2 (08:08→21:57)
[2021-11-14] MEDS: ENOXAPARIN SOD 40 MG/0.4 ML SYRINGE SC SCH (08:08)
[2021-11-14 08:43] VITALS: BP 153/81
[2021-11-14] MEDS ORDERED: METOPROLOL TARTRATE 25 MG TAB PO ONE (11:00)
[2021-11-14 12:38] VITALS: BP 152/79
[2021-11-14 17:00] VITALS: BP 141/77
[2021-11-14] MEDS: CITALOPRAM HYDROBR 20 MG TAB PO SCH (17:40)
[2021-11-14] MEDS: LOSARTAN POTASSIUM 50 MG TAB PO SCH (17:41)
[2021-11-14 20:09] VITALS: BP 141/77
[2021-11-14] MEDS: ATORVASTATIN 20 MG TAB PO SCH (21:57)
[2021-11-14] MEDS: METOPROLOL TARTRATE 25 MG TAB PO SCH (21:58)
[2021-11-14 22:00] VITALS: BP 122/60
[2021-11-15] MEDS: ALBUTEROL SULF 2.5 MG/0.5ML(0.5%) NEB SOLN NEB SCH ×4 (00:14→18:35)
[2021-11-15] MEDS: IPRATROPIUM BROM 0.5 MG/2.5ML INH SOL NEB SCH ×4 (00:14→18:35)
[2021-11-15] MEDS: ACCU-CHEK COMFORT CURVE STRIP VI SCH ×4 (03:52→16:58)
[2021-11-15] MEDS: InsuLIN REG 1unit/0.01ml Soln (100units/ml) SC SCH ×5 (03:52→23:58)
[2021-11-15 05:00] VITALS: BP 134/70
[2021-11-15] MEDS: FUROSEMIDE 40 MG/4 ML VIAL IV SCH ×2 (06:19→16:55)
[2021-11-15] MEDS: INSULIN LANTUS (GLARGINE) 1 /0.01ml (100units/ml) SC SCH ×2 (06:19→22:51)
[2021-11-15] MEDS: BUDESONIDE (INHALATION) 0.5 MG/2 ML NEB NEB SCH ×2 (07:07→18:35)
[2021-11-15 08:00] VITALS: BP 122/55
[2021-11-15] MEDS ORDERED: REGADENOSON 0.4 MG/5 ML SYRG IV ONE (09:45)
[2021-11-15 09:53] VITALS: BP 103/54
[2021-11-15] MEDS ORDERED: CAL025T GT ×2 (10:50→10:59)
[2021-11-15] MEDS ORDERED: 1,4-CRY XX (10:52)
[2021-11-15] MEDS ORDERED: ALBUAER3 IN (11:04)
[2021-11-15] MEDS: ASPirin-EC 81 mg tab PO SCH (11:38)
[2021-11-15] MEDS: PANTOPRAZOLE 40 MG TAB PO SCH (11:39)
[2021-11-15] MEDS: ENOXAPARIN SOD 40 MG/0.4 ML SYRINGE SC SCH (11:40)
[2021-11-15] MEDS: OXYBUTYNIN CHL 5 MG TAB PO SCH ×2 (11:40→22:56)
[2021-11-15] MEDS: methylPREDNISolone SOD SUCC 40 MG/ML VL IV SCH (11:40)
[2021-11-15] MEDS: MULTIPLE VITAMINS W/ MINERALS TAB PO SCH (11:42)
[2021-11-15] MEDS: METOPROLOL TARTRATE 25 MG TAB PO SCH ×2 (11:42→22:00)
[2021-11-15] MEDS: AZITHROMYCIN 250 MG TAB PO SCH (11:43)
[2021-11-15] MEDS: CHOLECALCIFEROL (VITD3) 1,000UNIT=25mCg TAB PO SCH (11:43)
[2021-11-15 12:00] VITALS: BP 121/66
[2021-11-15] MEDS ORDERED: DEXTROSE (50%) 50ML SYRG IV PRN (15:45)
[2021-11-15] MEDS ORDERED: [UNRECOGNIZED DRUG - CODE] PO (16:21)
[2021-11-15] MEDS ORDERED: MULT-733 PO (16:21)
[2021-11-15] MEDS ORDERED: CITA-77 PO (16:21)
[2021-11-15] MEDS ORDERED: CYAN100056 PO (16:21)
[2021-11-15] MEDS ORDERED: ZINC220C8 PO (16:21)
[2021-11-15] MEDS ORDERED: CHOL100046 PO (16:21)
[2021-11-15] MEDS ORDERED: VITA180C PO (16:21)
[2021-11-15] MEDS ORDERED: BIOT5TAB3 PO (16:21)
[2021-11-15] MEDS: CITALOPRAM HYDROBR 20 MG TAB PO SCH (16:56)
[2021-11-15 17:00] VITALS: BP 112/59
[2021-11-15] MEDS: LOSARTAN POTASSIUM 50 MG TAB PO SCH (18:51)
[2021-11-15 22:00] VITALS: BP 102/43
[2021-11-15] MEDS: ATORVASTATIN 20 MG TAB PO SCH (22:49)
[2021-11-15] MEDS: GABAPENTIN 300 MG CAP PO SCH (22:50)
[2021-11-16] MEDS: ALBUTEROL SULF 2.5 MG/0.5ML(0.5%) NEB SOLN NEB SCH ×4 (00:37→18:28)
[2021-11-16] MEDS: IPRATROPIUM BROM 0.5 MG/2.5ML INH SOL NEB SCH ×4 (00:37→18:28)
[2021-11-16] MEDS: METOPROLOL TARTRATE 25 MG TAB PO SCH ×2 (00:50→21:28)
[2021-11-16 05:00] VITALS: BP 135/64
[2021-11-16] MEDS: InsuLIN REG 1unit/0.01ml Soln (100units/ml) SC SCH ×3 (05:51→18:12)
[2021-11-16] MEDS: GABAPENTIN 300 MG CAP PO SCH ×3 (05:51→21:21)
[2021-11-16] MEDS: FUROSEMIDE 40 MG/4 ML VIAL IV SCH ×2 (05:52→18:11)
[2021-11-16] MEDS: ACCU-CHEK COMFORT CURVE STRIP VI SCH ×4 (06:05→17:19)
[2021-11-16] MEDS: BUDESONIDE (INHALATION) 0.5 MG/2 ML NEB NEB SCH ×2 (06:10→18:28)
[2021-11-16 06:51] LABS: Potassium 3.8 mmol/L (3.5-5.1)
[2021-11-16] MEDS: INSULIN LANTUS (GLARGINE) 1 /0.01ml (100units/ml) SC SCH ×2 (06:56→21:26)
[2021-11-16 07:05] LABS: BUN/Creatinine Ratio 43.4; Calcium 9.3 mg/dL (8.5-10.1); Magnesium 2.7 mg/dL (1.6-2.6)
[2021-11-16 07:07] LABS: Basophils # (auto) 0 10 ^3/uL (0-0.2); Basophils % (auto) 0.2 % (0.0-2.0); Eosinophils # (auto) 0 10 ^3/uL (0-0.8); Eosinophils % (auto) 0.2 % (0.0-7.0); Hematocrit 35.8 % (36.0-46.0); Lymphocytes # (auto) 3.8 10 ^3/uL (0.4-5.4); Lymphocytes % (auto) 30.8 % (10.0-50.0); Mean Corpuscular Hemoglobin 29.9 pg (28.0-32.0); Mean Corpuscular Hgb Conc. 33.6 g/dL (32.0-36.0); Mean Corpuscular Volume 88.8 fL (80.0-100.0); Monocytes # (auto) 0.7 10 ^3/uL (0-1.3); Monocytes % (auto) 6.1 % (0.0-12.0); Neutrophils # (auto) 7.7 10 ^3/uL (1.6-8.6); Neutrophils % (auto) 62.7 % (37.0-80.0); Nucleated Red Blood Cells % 0.1 %; Red Blood Cells 4.03 10^6/uL (4.0-5.20); Red Cell Distribution Width 15.8 % (11.8-14.3); White Blood Cell 12.2 10^3/uL (4.4-10.8)
[2021-11-16 08:05] VITALS: BP 104/57
[2021-11-16 09:15] VITALS: BP 104/57
[2021-11-16] MEDS: ASPirin-EC 81 mg tab PO SCH (10:38)
[2021-11-16] MEDS: CHOLECALCIFEROL (VITD3) 1,000UNIT=25mCg TAB PO SCH (10:38)
[2021-11-16] MEDS: OXYBUTYNIN CHL 5 MG TAB PO SCH ×2 (10:39→21:27)
[2021-11-16] MEDS: AZITHROMYCIN 250 MG TAB PO SCH (10:39)
[2021-11-16] MEDS: MULTIPLE VITAMINS W/ MINERALS TAB PO SCH (10:39)
[2021-11-16] MEDS: predniSONE 20 MG TAB PO SCH (10:39)
[2021-11-16] MEDS: PANTOPRAZOLE 40 MG TAB PO SCH (10:39)
[2021-11-16] MEDS: ENOXAPARIN SOD 40 MG/0.4 ML SYRINGE SC SCH (10:40)
[2021-11-16 12:14] VITALS: BP 104/49
[2021-11-16 16:29] VITALS: BP 133/67
[2021-11-16] MEDS: CITALOPRAM HYDROBR 20 MG TAB PO SCH (18:11)
[2021-11-16] MEDS: LOSARTAN POTASSIUM 50 MG TAB PO SCH (18:11)
[2021-11-16] MEDS: ATORVASTATIN 20 MG TAB PO SCH (21:28)
[2021-11-16 21:47] VITALS: BP 125/70
[2021-11-17] VITALS (16 sets, daily range): BP systolic 88–141; BP diastolic 35–81
[2021-11-17] MEDS: ALBUTEROL SULF 2.5 MG/0.5ML(0.5%) NEB SOLN NEB SCH ×3 (00:22→19:43)
[2021-11-17] MEDS: IPRATROPIUM BROM 0.5 MG/2.5ML INH SOL NEB SCH ×3 (00:23→19:43)
[2021-11-17] MEDS: ACCU-CHEK COMFORT CURVE STRIP VI SCH ×4 (00:56→18:18)
[2021-11-17] MEDS: InsuLIN REG 1unit/0.01ml Soln (100units/ml) SC SCH ×4 (00:58→18:19)
[2021-11-17] MEDS: FUROSEMIDE 40 MG/4 ML VIAL IV SCH (06:00)
[2021-11-17] MEDS: BUDESONIDE (INHALATION) 0.5 MG/2 ML NEB NEB SCH ×3 (06:14→19:43)
[2021-11-17] MEDS: INSULIN LANTUS (GLARGINE) 1 /0.01ml (100units/ml) SC SCH (06:19)
[2021-11-17] MEDS: GABAPENTIN 300 MG CAP PO SCH ×2 (06:21→14:52)
[2021-11-17 07:01] LABS: Basophils # (auto) 0.2 10 ^3/uL (0-0.2); Basophils % (auto) 1.5 % (0.0-2.0); Eosinophils # (auto) 0 10 ^3/uL (0-0.8); Eosinophils % (auto) 0.3 % (0.0-7.0); Hematocrit 35.4 % (36.0-46.0); Lymphocytes # (auto) 3.8 10 ^3/uL (0.4-5.4); Lymphocytes % (auto) 26.8 % (10.0-50.0); Mean Corpuscular Hemoglobin 29.9 pg (28.0-32.0); Mean Corpuscular Hgb Conc. 33.8 g/dL (32.0-36.0); Mean Corpuscular Volume 88.3 fL (80.0-100.0); Monocytes # (auto) 0.9 10 ^3/uL (0-1.3); Monocytes % (auto) 6.4 % (0.0-12.0); Neutrophils # (auto) 9.2 10 ^3/uL (1.6-8.6); Red Blood Cells 4.01 10^6/uL (4.0-5.20); Red Cell Distribution Width 15.5 % (11.8-14.3); White Blood Cell 14.2 10^3/uL (4.4-10.8)
[2021-11-17 07:15] LABS: INR 1.05 (0.9-1.15); Partial Thromboplastin Time 21.7 sec (23.6-33.0)
[2021-11-17 07:18] LABS: BUN/Creatinine Ratio 40.3; Calcium 9.6 mg/dL (8.5-10.1); Potassium 3.8 mmol/L (3.5-5.1)
[2021-11-17] MEDS: AZITHROMYCIN 250 MG TAB PO SCH (08:59)
[2021-11-17] MEDS: MULTIPLE VITAMINS W/ MINERALS TAB PO SCH (08:59)
[2021-11-17] MEDS: PANTOPRAZOLE 40 MG TAB PO SCH (08:59)
[2021-11-17] MEDS: ASPirin-EC 81 mg tab PO SCH (08:59)
[2021-11-17] MEDS: OXYBUTYNIN CHL 5 MG TAB PO SCH (09:00)
[2021-11-17] MEDS: predniSONE 20 MG TAB PO SCH (09:00)
[2021-11-17] MEDS: CHOLECALCIFEROL (VITD3) 1,000UNIT=25mCg TAB PO SCH (09:01)
[2021-11-17] MEDS: METOPROLOL TARTRATE 25 MG TAB PO SCH (09:02)
[2021-11-17] MEDS: ENOXAPARIN SOD 40 MG/0.4 ML SYRINGE SC SCH (09:02)
[2021-11-17] MEDS ORDERED: ANGIOMAX 250 MG VIAL IV ONE (09:26)
[2021-11-17] MEDS ORDERED: HEPARIN SODIUM (PORCINE) 5000 UNITS/ML 1ML VIAL ONE (09:26)
[2021-11-17] MEDS ORDERED: IODIXANOL 320MG/ML 100ML BTL IV ONE (09:27)
[2021-11-17] MEDS ORDERED: MIDAZOLAM HCL 2MG/2ML 2ml VIAL (1mg/ml) ONE (09:27)
[2021-11-17] MEDS ORDERED: VERAPAMIL 2.5MG/ML INJ 2ML VIAL IV ONE (09:27)
[2021-11-17] MEDS ORDERED: SODIUM CHL 0.9% 0 ML ONE (09:27)
[2021-11-17] MEDS ORDERED: fentaNYL CITRATE 100 MCG/2 ML VL ONE (09:27)
[2021-11-17] MEDS ORDERED: LIDOCAINE 2%HCL (LOCAL ANESTH.) INJ 20ML MDV ONE (09:32)
[2021-11-17] MEDS ORDERED: PRED20TA2 PO (12:46)
[2021-11-17] MEDS ORDERED: ALBUAER3 IN (12:46)
[2021-11-17] MEDS ORDERED: SODIUM CHLOR 0.9% PF (SALINE LOCK) 10ML VIAL/SYR IV SCH (14:00)
[2021-11-17] MEDS: CITALOPRAM HYDROBR 20 MG TAB PO SCH (18:17)
[2021-11-17] MEDS: LOSARTAN POTASSIUM 50 MG TAB PO SCH (18:17)
[2021-11-18] MEDS ORDERED: FUROSEMIDE 40 MG TAB PO SCH (10:00)
== END 2021-11-17 19:55 | disposition home health service (06) | DRG 286 ==
LOC: ER 17:10 → TELE 20:16 → TELE-CENTR 23:20
PROVIDERS: ADMIT Internal Medicine; ATTEND Internal Medicine
PROC: 4A023N7 Measurement of Cardiac Sampling and Pressure, Left Heart, Percutaneous Approach (ICD-10-PCS; principal; 2021-11-17)
PROC: B211YZZ Fluoroscopy of Multiple Coronary Arteries using Other Contrast (ICD-10-PCS; 2021-11-17)
PROC: B215YZZ Fluoroscopy of Left Heart using Other Contrast (ICD-10-PCS; 2021-11-17)
DX: I11.0 Hypertensive heart disease with heart failure (principal); J96.21 Acute and chronic respiratory failure with hypoxia; I50.33 Acute on chronic diastolic (congestive) heart failure; J44.1 Chronic obstructive pulmonary disease with (acute) exacerbation; J98.11 Atelectasis; Z68.42 Body mass index [BMI] 45.0-49.9, adult; E11.65 Type 2 diabetes mellitus with hyperglycemia; E66.01 Morbid (severe) obesity due to excess calories; E78.5 Hyperlipidemia, unspecified; Z20.822 Contact with and (suspected) exposure to COVID-19; G47.33 Obstructive sleep apnea (adult) (pediatric); I27.20 Pulmonary hypertension, unspecified; Z99.81 Dependence on supplemental oxygen; Z88.1 Allergy status to other antibiotic agents; Z88.8 Allergy status to other drugs, medicaments and biological substances; Z79.4 Long term (current) use of insulin; Z79.51 Long term (current) use of inhaled steroids; Z80.9 Family history of malignant neoplasm, unspecified; Z82.49 Family history of ischemic heart disease and other diseases of the circulatory system; Z83.3 Family history of diabetes mellitus; Z86.16 Personal history of COVID-19; Z87.891 Personal history of nicotine dependence; Z90.710 Acquired absence of both cervix and uterus; Z91.19 Patient's noncompliance with other medical treatment and regimen; Z79.84 Long term (current) use of oral hypoglycemic drugs
CPT/HCPCS: 36415; 71045; 71275; 78452; 80048; 80053; 80061; 81001; 82728; 82962; 83605; 83735; 83880; 84484; 85025; 85379; 85610; 85730; 86141; 87040; 87426; 93005; 93017; 93306; 93458; 93970; 94640; 96374; 96375; 97116; 97163; 97530; 99152; G0378; J1815; J2250; Q9967

== ENCOUNTER 2022-04-26 20:26 | Inpatient (IN) | payer OTHER, MEDICAID ==
[~2022-04-26] VITALS: Ht 144.8 cm; Wt 100.3 kg
[~2022-04-26 20:26] MED LIST changes: -ASCO500T11 PO; -BIOT50007 PO; +BIOT5TAB3 PO; +CHOL100046 PO; -CHOL1TAB30 PO; -DEX4T PO; -DEXT1SYP9 PO; -FLUC200T35 PO; -LEVO750T8 PO; +PRED20TA2 PO; +ZINC220C8 PO; -ZINC50CA2 PO; +[UNRECOGNIZED DRUG - CODE] PO
[2022-04-26] MEDS ORDERED: ACETAMINOPHEN 325 MG TAB PO ONE (21:00)
[2022-04-26 22:37] LABS: Basophils # (auto) 0.1 10 ^3/uL (0-0.2); Basophils % (auto) 0.3 % (0.0-2.0); Eosinophils # (auto) 0.2 10 ^3/uL (0-0.8); Eosinophils % (auto) 1.1 % (0.0-7.0); Hematocrit 32.1 % (36.0-46.0); Hemoglobin 10.6 g/dL (12.2-16.2); Lymphocytes # (auto) 1.5 10 ^3/uL (0.4-5.4); Lymphocytes % (auto) 7.8 % (10.0-50.0); Monocytes # (auto) 0.7 10 ^3/uL (0-1.3); Monocytes % (auto) 3.7 % (0.0-12.0); Neutrophils % (auto) 87.1 % (37.0-80.0); Nucleated Red Blood Cells % 0.1 %; Red Blood Cells 3.65 10^6/uL (4.0-5.20); Red Cell Distribution Width 15.7 % (11.8-14.3); White Blood Cell 19.5 10^3/uL (4.4-10.8)
[2022-04-26 22:38] LABS: Potassium 3.2 mmol/L (3.5-5.1)
[2022-04-26 22:41] LABS: Albumin 2.3 g/dL (3.4-5.0); BUN/Creatinine Ratio 18.3; Calcium 8.5 mg/dL (8.5-10.1); Magnesium 2.1 mg/dL (1.6-2.6)
[2022-04-26 22:44] LABS: Bilirubin, Total 0.9 mg/dL (0.2-1.0); Total Protein 6.7 g/dL (6.4-8.2)
[2022-04-26] MEDS ORDERED: ASPirin 81 mg TAB PO ONE (23:00)
[2022-04-26] MEDS ORDERED: ASPirin 81 mg TAB ONE (23:01)
[2022-04-27] MEDS ORDERED: AZITHROMYCIN 500MG/ 250ML 250 ML IV ONE (00:30)
[2022-04-27] MEDS ORDERED: cefTRIAXone 1GM/50ML D5W 50 ML IV ONE (00:30)
[2022-04-27] MEDS ORDERED: TEMAZEPAM 15 MG CAP PO PRN (00:45)
[2022-04-27] MEDS ORDERED: ONDANSETRON HCL 4 MG/2 ML VIAL IV PRN (00:45)
[2022-04-27] MEDS ORDERED: ACETAMINOPHEN 325 MG TAB PO PRN (00:45)
[2022-04-27] MEDS ORDERED: ENOXAPARIN SOD 100 MG/1 ML SYRINGE SC ONE (00:45)
[2022-04-27] MEDS ORDERED: MORPHINE SULFATE INJ 2 MG/ml SYRG IV PRN (00:45)
[2022-04-27] MEDS ORDERED: ALBUTEROL SULF 2.5 MG/0.5ML(0.5%) NEB SOLN NEB PRN (00:45)
[2022-04-27] MEDS ORDERED: NITROGLYCERIN 0.4 MG SL TAB SL PRN (00:45)
[2022-04-27] MEDS ORDERED: DEXTROSE (50%) 50ML SYRG IV PRN (00:45)
[2022-04-27 01:41] VITALS: BP 111/60
[2022-04-27 02:13] LABS: Urine Bacteria MANY /hpf (None Seen); Urine Blood 2+ /uL (Negative); Urine Specific Gravity 1.016 (1.001-1.035); Urine WBC 37 /hpf (0 - 5)
[2022-04-27] MEDS: GABAPENTIN 300 MG CAP PO SCH ×4 (06:00→14:06)
[2022-04-27] MEDS: ACCU-CHEK COMFORT CURVE STRIP VI SCH ×4 (06:29→22:59)
[2022-04-27] MEDS: InsuLIN REG 1unit/0.01ml Soln (100units/ml) SC SCH ×4 (06:29→23:01)
[2022-04-27] MEDS: FUROSEMIDE 40 MG TAB PO SCH (10:00)
[2022-04-27] MEDS: PANTOPRAZOLE 40 MG TAB PO SCH (10:00)
[2022-04-27] MEDS ORDERED: LOSARTAN POTASSIUM 50 MG TAB PO SCH (10:00)
[2022-04-27] MEDS ORDERED: ASPirin 81 mg TAB PO SCH (10:00)
[2022-04-27] MEDS: TOPIRAMATE 25 MG TAB PO SCH ×2 (10:00→21:20)
[2022-04-27 13:00] VITALS: BP 108/65
[2022-04-27 17:00] VITALS: BP 118/69
[2022-04-27] MEDS ORDERED: cefTRIAXone 1GM/50ML D5W 50 ML IV SCH ×2 (20:00)
[2022-04-27] MEDS ORDERED: AZITHROMYCIN 500MG/ 250ML 250 ML IV SCH (21:00)
[2022-04-27] MEDS: ATORVASTATIN 20 MG TAB PO SCH (21:20)
[2022-04-27] MEDS: ENOXAPARIN SOD 30 MG/0.3 ML SYRINGE SC SCH (21:20)
[2022-04-27 22:00] VITALS: BP 116/53
[2022-04-28 00:32] LABS: BUN/Creatinine Ratio 20.3; Calcium 8.6 mg/dL (8.5-10.1)
[2022-04-28 00:39] LABS: Potassium 2.8 mmol/L (3.5-5.1)
[2022-04-28] MEDS ORDERED: POTASSIUM CHL 20 Meq TABLET PO ONE (01:15)
[2022-04-28 05:00] VITALS: BP 155/76
[2022-04-28 05:24] LABS: Basophils # (auto) 0 10 ^3/uL (0-0.2); Basophils % (auto) 0.2 % (0.0-2.0); Eosinophils # (auto) 0 10 ^3/uL (0-0.8); Eosinophils % (auto) 0.1 % (0.0-7.0); Hematocrit 32.5 % (36.0-46.0); Hemoglobin 10.9 g/dL (12.2-16.2); Lymphocytes # (auto) 1.8 10 ^3/uL (0.4-5.4); Lymphocytes % (auto) 8.4 % (10.0-50.0); Mean Corpuscular Hemoglobin 29.5 pg (28.0-32.0); Mean Corpuscular Hgb Conc. 33.7 g/dL (32.0-36.0); Mean Corpuscular Volume 87.5 fL (80.0-100.0); Monocytes # (auto) 0.8 10 ^3/uL (0-1.3); Monocytes % (auto) 3.8 % (0.0-12.0); Neutrophils # (auto) 19.2 10 ^3/uL (1.6-8.6); Neutrophils % (auto) 87.5 % (37.0-80.0); Red Blood Cells 3.71 10^6/uL (4.0-5.20); Red Cell Distribution Width 16.1 % (11.8-14.3); White Blood Cell 21.9 10^3/uL (4.4-10.8)
[2022-04-28] MEDS: ACCU-CHEK COMFORT CURVE STRIP VI SCH ×4 (05:24→23:25)
[2022-04-28] MEDS: InsuLIN REG 1unit/0.01ml Soln (100units/ml) SC SCH ×4 (05:25→23:24)
[2022-04-28 05:36] LABS: Calcium 8.8 mg/dL (8.5-10.1); Potassium 3.1 mmol/L (3.5-5.1)
[2022-04-28 05:45] LABS: BUN/Creatinine Ratio 19.4
[2022-04-28 06:11] LABS: Albumin 2.2 g/dL (3.4-5.0)
[2022-04-28] MEDS: PANTOPRAZOLE 40 MG TAB PO SCH (09:12)
[2022-04-28] MEDS: ASPirin 81 mg TAB PO SCH (09:12)
[2022-04-28] MEDS: POTASSIUM CHL 20 Meq TABLET PO SCH (09:12)
[2022-04-28] MEDS: FUROSEMIDE 40 MG TAB PO SCH (09:13)
[2022-04-28] MEDS: TOPIRAMATE 25 MG TAB PO SCH ×2 (09:13→21:06)
[2022-04-28] MEDS: HYDROcodone-ACET 5/325MG TAB PO PRN (09:20)
[2022-04-28 09:41] VITALS: BP 139/74
[2022-04-28] MEDS ORDERED: CEFEPIME 1GM/ 50ML 50 ML IV ONE (10:45)
[2022-04-28 17:35] VITALS: BP 110/65
[2022-04-28] MEDS ORDERED: AZITHROMYCIN 500MG/ 250ML 250 ML IV SCH (20:00)
[2022-04-28] MEDS ORDERED: CEFEPIME 1GM/ 50ML 50 ML IV SCH (21:00)
[2022-04-28] MEDS: ATORVASTATIN 20 MG TAB PO SCH (21:06)
[2022-04-28] MEDS: ENOXAPARIN SOD 30 MG/0.3 ML SYRINGE SC SCH (21:06)
[2022-04-28 22:00] VITALS: BP 135/71
[2022-04-28] MEDS: CEFEPIME 1GM/ 50ML 50 ML IV SCH (22:29)
[2022-04-29 05:00] VITALS: BP 132/69
[2022-04-29] MEDS: ACCU-CHEK COMFORT CURVE STRIP VI SCH ×3 (05:16→19:07)
[2022-04-29] MEDS: InsuLIN REG 1unit/0.01ml Soln (100units/ml) SC SCH ×3 (05:23→19:09)
[2022-04-29 05:48] LABS: Albumin 2.1 g/dL (3.4-5.0); BUN/Creatinine Ratio 21.3; Calcium 8.8 mg/dL (8.5-10.1); Magnesium 2.3 mg/dL (1.6-2.6); Potassium 3.8 mmol/L (3.5-5.1)
[2022-04-29 05:51] LABS: Bilirubin, Total 0.9 mg/dL (0.2-1.0); Total Protein 6.7 g/dL (6.4-8.2)
[2022-04-29 05:57] LABS: Basophils # (auto) 0 10 ^3/uL (0-0.2); Basophils % (auto) 0.2 % (0.0-2.0); Eosinophils # (auto) 0 10 ^3/uL (0-0.8); Eosinophils % (auto) 0.2 % (0.0-7.0); Hematocrit 30.4 % (36.0-46.0); Hemoglobin 9.9 g/dL (12.2-16.2); Lymphocytes # (auto) 1.7 10 ^3/uL (0.4-5.4); Lymphocytes % (auto) 7.9 % (10.0-50.0); Mean Corpuscular Hemoglobin 28.6 pg (28.0-32.0); Mean Corpuscular Hgb Conc. 32.6 g/dL (32.0-36.0); Mean Corpuscular Volume 87.5 fL (80.0-100.0); Monocytes % (auto) 4.7 % (0.0-12.0); Neutrophils # (auto) 18.9 10 ^3/uL (1.6-8.6); Nucleated Red Blood Cells % 0.1 %; Red Blood Cells 3.47 10^6/uL (4.0-5.20); Red Cell Distribution Width 15.8 % (11.8-14.3); White Blood Cell 21.7 10^3/uL (4.4-10.8)
[2022-04-29] MEDS ORDERED: FUROSEMIDE 20 MG/2 ML VIAL IV SCH (06:00)
[2022-04-29 09:00] VITALS: BP 142/72
[2022-04-29] MEDS: POTASSIUM CHL 20 Meq TABLET PO SCH (09:43)
[2022-04-29] MEDS: TOPIRAMATE 25 MG TAB PO SCH ×2 (09:43→22:04)
[2022-04-29] MEDS: PANTOPRAZOLE 40 MG TAB PO SCH (09:43)
[2022-04-29] MEDS: ASPirin 81 mg TAB PO SCH (09:43)
[2022-04-29] MEDS: FUROSEMIDE 20 MG/2 ML VIAL IV SCH (09:44)
[2022-04-29] MEDS: CEFEPIME 1GM/ 50ML 50 ML IV SCH (09:45)
[2022-04-29] MEDS ORDERED: CEFTRIAXONE SODIUM 2 GM in D5W 5% 50 ML IV ONE (10:15)
[2022-04-29] MEDS ORDERED: SODIUM CHLORIDE 0.9% 1,000 ML IV ONE (12:00)
[2022-04-29 13:00] VITALS: BP 126/60
[2022-04-29 16:26] VITALS: BP 114/73
[2022-04-29] MEDS: HYDROcodone-ACET 5/325MG TAB PO PRN (20:29)
[2022-04-29 21:57] VITALS: BP 114/73
[2022-04-29 22:00] VITALS: BP 138/76
[2022-04-29] MEDS: ATORVASTATIN 20 MG TAB PO SCH (22:04)
[2022-04-29 23:08] LABS: INR 1.04 (0.9-1.15); Partial Thromboplastin Time 28.5 sec (24.6-33.4)
[2022-04-30] MEDS: ACCU-CHEK COMFORT CURVE STRIP VI SCH ×4 (00:12→18:27)
[2022-04-30] MEDS: InsuLIN REG 1unit/0.01ml Soln (100units/ml) SC SCH ×4 (00:21→18:27)
[2022-04-30] MEDS: HYDROcodone-ACET 5/325MG TAB PO PRN ×3 (01:43→20:33)
[2022-04-30 04:55] LABS: BUN/Creatinine Ratio 20.1; Calcium 8.6 mg/dL (8.5-10.1); Potassium 4.1 mmol/L (3.5-5.1)
[2022-04-30 05:00] VITALS: BP 114/57
[2022-04-30 08:00] VITALS: BP 125/62
[2022-04-30 09:00] VITALS: BP 125/62
[2022-04-30] MEDS: POTASSIUM CHL 20 Meq TABLET PO SCH (09:42)
[2022-04-30] MEDS: ASPirin 81 mg TAB PO SCH (09:42)
[2022-04-30] MEDS: TOPIRAMATE 25 MG TAB PO SCH ×2 (09:43→21:39)
[2022-04-30] MEDS: ENOXAPARIN SOD 40 MG/0.4 ML SYRINGE SC SCH (09:43)
[2022-04-30] MEDS: PANTOPRAZOLE 40 MG TAB PO SCH (09:43)
[2022-04-30] MEDS: FUROSEMIDE 20 MG/2 ML VIAL IV SCH (09:50)
[2022-04-30] MEDS: CEFTRIAXONE SODIUM 2 GM in D5W 5% 50 ML IV SCH (10:11)
[2022-04-30] MEDS: MECLIZINE HCL 25 MG TAB PO PRN (12:03)
[2022-04-30 13:00] VITALS: BP 114/62
[2022-04-30 15:49] LABS: Basophils # (auto) 0.1 10 ^3/uL (0-0.2); Basophils % (auto) 0.4 % (0.0-2.0); Eosinophils # (auto) 0.1 10 ^3/uL (0-0.8); Eosinophils % (auto) 0.4 % (0.0-7.0); Hematocrit 28.3 % (36.0-46.0); Hemoglobin 9.1 g/dL (12.2-16.2); Lymphocytes # (auto) 1.7 10 ^3/uL (0.4-5.4); Lymphocytes % (auto) 7.2 % (10.0-50.0); Mean Corpuscular Hemoglobin 28.6 pg (28.0-32.0); Mean Corpuscular Hgb Conc. 31.9 g/dL (32.0-36.0); Mean Corpuscular Volume 89.6 fL (80.0-100.0); Monocytes % (auto) 4.3 % (0.0-12.0); Neutrophils # (auto) 20.2 10 ^3/uL (1.6-8.6); Neutrophils % (auto) 87.7 % (37.0-80.0); Red Blood Cells 3.16 10^6/uL (4.0-5.20); Red Cell Distribution Width 16.4 % (11.8-14.3)
[2022-04-30 16:44] VITALS: BP 120/65
[2022-04-30] MEDS: ATORVASTATIN 20 MG TAB PO SCH (21:38)
[2022-04-30 22:00] VITALS: BP 133/59
[2022-05-01] MEDS: ACCU-CHEK COMFORT CURVE STRIP VI SCH ×4 (00:02→18:24)
[2022-05-01] MEDS: InsuLIN REG 1unit/0.01ml Soln (100units/ml) SC SCH ×4 (00:03→18:23)
[2022-05-01] MEDS: HYDROcodone-ACET 5/325MG TAB PO PRN ×3 (00:07→19:09)
[2022-05-01 05:00] VITALS: BP 123/55
[2022-05-01 07:43] LABS: Basophils # (auto) 0.2 10 ^3/uL (0-0.2); Basophils % (auto) 1.2 % (0.0-2.0); Eosinophils # (auto) 0.1 10 ^3/uL (0-0.8); Eosinophils % (auto) 0.6 % (0.0-7.0); Hematocrit 26.3 % (36.0-46.0); Hemoglobin 8.7 g/dL (12.2-16.2); Lymphocytes # (auto) 2.1 10 ^3/uL (0.4-5.4); Lymphocytes % (auto) 9.9 % (10.0-50.0); Mean Corpuscular Hemoglobin 29.7 pg (28.0-32.0); Monocytes # (auto) 0.9 10 ^3/uL (0-1.3); Monocytes % (auto) 4.3 % (0.0-12.0); Neutrophils # (auto) 17.4 10 ^3/uL (1.6-8.6); Red Blood Cells 2.92 10^6/uL (4.0-5.20); Red Cell Distribution Width 16.1 % (11.8-14.3); White Blood Cell 20.7 10^3/uL (4.4-10.8)
[2022-05-01 08:00] VITALS: BP 126/69
[2022-05-01 08:00] LABS: BUN/Creatinine Ratio 19.5; Potassium 4.5 mmol/L (3.5-5.1)
[2022-05-01 09:00] VITALS: BP 126/69
[2022-05-01] MEDS: ENOXAPARIN SOD 40 MG/0.4 ML SYRINGE SC SCH (09:07)
[2022-05-01] MEDS: TOPIRAMATE 25 MG TAB PO SCH ×2 (09:08→21:52)
[2022-05-01] MEDS: POTASSIUM CHL 20 Meq TABLET PO SCH (09:08)
[2022-05-01] MEDS: ASPirin 81 mg TAB PO SCH (09:08)
[2022-05-01] MEDS: MECLIZINE HCL 25 MG TAB PO PRN (09:09)
[2022-05-01] MEDS: PANTOPRAZOLE 40 MG TAB PO SCH (09:09)
[2022-05-01] MEDS: FUROSEMIDE 20 MG/2 ML VIAL IV SCH (09:10)
[2022-05-01] MEDS: CEFTRIAXONE SODIUM 2 GM in D5W 5% 50 ML IV SCH (09:20)
[2022-05-01 13:00] VITALS: BP 120/49
[2022-05-01 17:00] VITALS: BP 118/59
[2022-05-01] MEDS: ALBUTEROL SULF 2.5 MG/0.5ML(0.5%) NEB SOLN NEB SCH (19:40)
[2022-05-01] MEDS: ATORVASTATIN 20 MG TAB PO SCH (21:51)
[2022-05-01 22:00] VITALS: BP 119/64
[2022-05-02] VITALS (11 sets, daily range): BP systolic 102–163; BP diastolic 47–76
[2022-05-02] MEDS: InsuLIN REG 1unit/0.01ml Soln (100units/ml) SC SCH ×5 (00:34→23:29)
[2022-05-02] MEDS: ACCU-CHEK COMFORT CURVE STRIP VI SCH ×5 (00:34→23:20)
[2022-05-02] MEDS: ALBUTEROL SULF 2.5 MG/0.5ML(0.5%) NEB SOLN NEB SCH ×4 (00:48→20:50)
[2022-05-02] MEDS: PANTOPRAZOLE 40 MG TAB PO SCH (10:00)
[2022-05-02] MEDS: POTASSIUM CHL 20 Meq TABLET PO SCH (10:00)
[2022-05-02] MEDS ORDERED: IOHEXOL 350 MG/ML 100ML IJ ONE (10:28)
[2022-05-02] MEDS ORDERED: LIDOCAINE 2%HCL (LOCAL ANESTH.) INJ 20ML MDV ONE (10:28)
[2022-05-02] MEDS ORDERED: fentaNYL CITRATE 100 MCG/2 ML VL ONE (10:32)
[2022-05-02] MEDS ORDERED: MIDAZOLAM HCL 2MG/2ML 2ml VIAL (1mg/ml) ONE (10:33)
[2022-05-02 11:12] LABS: BUN/Creatinine Ratio 18.9; Calcium 9.5 mg/dL (8.5-10.1); Potassium 4.7 mmol/L (3.5-5.1)
[2022-05-02 11:16] LABS: Hepatitis B Surface Antibody Negative (Negative)
[2022-05-02 11:46] LABS: Hepatitis A Total Antibody Positive (Negative)
[2022-05-02 12:18] LABS: Hepatitis C Antibody Negative (Negative)
[2022-05-02] MEDS: CEFTRIAXONE SODIUM 2 GM in D5W 5% 50 ML IV SCH (13:13)
[2022-05-02] MEDS: FUROSEMIDE 20 MG/2 ML VIAL IV SCH (13:13)
[2022-05-02] MEDS: TOPIRAMATE 25 MG TAB PO SCH ×2 (13:13→22:06)
[2022-05-02] MEDS: HYDROcodone-ACET 5/325MG TAB PO PRN ×3 (13:14→23:36)
[2022-05-02] MEDS: ATORVASTATIN 20 MG TAB PO SCH (22:07)
[2022-05-03] VITALS (7 sets, daily range): BP systolic 108–120; BP diastolic 40–66
[2022-05-03] MEDS: ALBUTEROL SULF 2.5 MG/0.5ML(0.5%) NEB SOLN NEB SCH ×4 (01:16→19:00)
[2022-05-03 05:15] LABS: Basophils # (auto) 0.1 10 ^3/uL (0-0.2); Basophils % (auto) 0.5 % (0.0-2.0); Eosinophils # (auto) 0.1 10 ^3/uL (0-0.8); Eosinophils % (auto) 0.7 % (0.0-7.0); Hemoglobin 9.1 g/dL (12.2-16.2); Lymphocytes # (auto) 2.7 10 ^3/uL (0.4-5.4); Mean Corpuscular Hemoglobin 29.1 pg (28.0-32.0); Mean Corpuscular Hgb Conc. 32.3 g/dL (32.0-36.0); Mean Corpuscular Volume 90.1 fL (80.0-100.0); Monocytes # (auto) 0.9 10 ^3/uL (0-1.3); Monocytes % (auto) 5.1 % (0.0-12.0); Neutrophils # (auto) 14.4 10 ^3/uL (1.6-8.6); Neutrophils % (auto) 78.7 % (37.0-80.0); Red Blood Cells 3.11 10^6/uL (4.0-5.20); Red Cell Distribution Width 15.4 % (11.8-14.3); White Blood Cell 18.3 10^3/uL (4.4-10.8)
[2022-05-03] MEDS: ACCU-CHEK COMFORT CURVE STRIP VI SCH ×4 (05:25→23:44)
[2022-05-03] MEDS: InsuLIN REG 1unit/0.01ml Soln (100units/ml) SC SCH ×4 (05:29→23:47)
[2022-05-03] MEDS: HYDROcodone-ACET 5/325MG TAB PO PRN ×3 (05:30→21:58)
[2022-05-03 05:32] LABS: BUN/Creatinine Ratio 22.1; Calcium 9.3 mg/dL (8.5-10.1); Magnesium 2.4 mg/dL (1.6-2.6); Potassium 4.3 mmol/L (3.5-5.1)
[2022-05-03] MEDS: PANTOPRAZOLE 40 MG TAB PO SCH (09:23)
[2022-05-03] MEDS: FUROSEMIDE 20 MG/2 ML VIAL IV SCH (09:24)
[2022-05-03] MEDS: TOPIRAMATE 25 MG TAB PO SCH ×2 (09:24→21:55)
[2022-05-03] MEDS: POTASSIUM CHL 20 Meq TABLET PO SCH (09:24)
[2022-05-03] MEDS: CEFTRIAXONE SODIUM 2 GM in D5W 5% 50 ML IV SCH (09:32)
[2022-05-03] MEDS ORDERED: SODIUM CHLORIDE 0.9 % NEB SOLN 3ML NEB ONE (11:37)
[2022-05-03] MEDS ORDERED: HYDR-4902 PO (11:51)
[2022-05-03] MEDS: DOCUSATE SOD 100 MG CAP PO SCH (21:54)
[2022-05-03] MEDS: ATORVASTATIN 20 MG TAB PO SCH (21:55)
[2022-05-03] MEDS ORDERED: SENNA 8.6 MG TAB PO SCH (22:00)
[2022-05-04 04:56] VITALS: BP 126/66
[2022-05-04] MEDS: ACCU-CHEK COMFORT CURVE STRIP VI SCH ×3 (05:14→18:11)
[2022-05-04] MEDS: InsuLIN REG 1unit/0.01ml Soln (100units/ml) SC SCH ×3 (05:17→18:00)
[2022-05-04] MEDS: ALBUTEROL SULF 2.5 MG/0.5ML(0.5%) NEB SOLN NEB SCH ×3 (05:54→11:14)
[2022-05-04 07:39] LABS: Basophils # (auto) 0.1 10 ^3/uL (0-0.2); Basophils % (auto) 0.6 % (0.0-2.0); Eosinophils # (auto) 0.1 10 ^3/uL (0-0.8); Eosinophils % (auto) 0.7 % (0.0-7.0); Hematocrit 27.8 % (36.0-46.0); Hemoglobin 8.8 g/dL (12.2-16.2); Lymphocytes % (auto) 15.3 % (10.0-50.0); Mean Corpuscular Hemoglobin 28.8 pg (28.0-32.0); Mean Corpuscular Hgb Conc. 31.8 g/dL (32.0-36.0); Mean Corpuscular Volume 90.5 fL (80.0-100.0); Monocytes # (auto) 0.7 10 ^3/uL (0-1.3); Monocytes % (auto) 5.4 % (0.0-12.0); Neutrophils # (auto) 10.1 10 ^3/uL (1.6-8.6); Red Blood Cells 3.07 10^6/uL (4.0-5.20); Red Cell Distribution Width 15.5 % (11.8-14.3); White Blood Cell 12.9 10^3/uL (4.4-10.8)
[2022-05-04 08:09] LABS: BUN/Creatinine Ratio 19.6; Magnesium 2.2 mg/dL (1.6-2.6); Potassium 4.6 mmol/L (3.5-5.1)
[2022-05-04] MEDS: CEFTRIAXONE SODIUM 2 GM in D5W 5% 50 ML IV SCH (08:41)
[2022-05-04] MEDS: PANTOPRAZOLE 40 MG TAB PO SCH (08:42)
[2022-05-04] MEDS: TOPIRAMATE 25 MG TAB PO SCH (08:42)
[2022-05-04] MEDS: DOCUSATE SOD 100 MG CAP PO SCH (08:42)
[2022-05-04] MEDS: POTASSIUM CHL 20 Meq TABLET PO SCH (08:43)
[2022-05-04] MEDS: FUROSEMIDE 20 MG/2 ML VIAL IV SCH (08:58)
[2022-05-04 09:17] VITALS: BP 114/58
[2022-05-04 13:00] VITALS: BP 101/55
[2022-05-04 14:03] VITALS: BP 114/58
[2022-05-04 17:00] VITALS: BP 127/80
== END 2022-05-04 18:10 | disposition home health service (06) | DRG 871 ==
LOC: ER 20:26 → EDUNIT# 20:26 → EDBD 20:26 → TELE 04-27 00:47 → TELE-WESTW 04-27 10:18
PROVIDERS: ADMIT Nurse Practitioner; ATTEND Internal Medicine
PROC: 0T9430Z Drainage of Left Kidney Pelvis with Drainage Device, Percutaneous Approach (ICD-10-PCS; principal; 2022-05-02)
PROC: 05HF33Z Insertion of Infusion Device into Left Cephalic Vein, Percutaneous Approach (ICD-10-PCS; 2022-05-02)
PROC: B54NZZA Ultrasonography of Left Upper Extremity Veins, Guidance (ICD-10-PCS; 2022-05-02)
PROC: 05HB33Z Insertion of Infusion Device into Right Basilic Vein, Percutaneous Approach (ICD-10-PCS; 2022-05-03)
PROC: B54MZZA Ultrasonography of Right Upper Extremity Veins, Guidance (ICD-10-PCS; 2022-05-03)
DX: A41.50 Gram-negative sepsis, unspecified (principal); I50.33 Acute on chronic diastolic (congestive) heart failure; N17.0 Acute kidney failure with tubular necrosis; J18.9 Pneumonia, unspecified organism; N39.0 Urinary tract infection, site not specified; J44.1 Chronic obstructive pulmonary disease with (acute) exacerbation; I13.0 Hypertensive heart and chronic kidney disease with heart failure and stage 1 through stage 4 chronic kidney disease, or unspecified chronic kidney disease; I24.8 Other forms of acute ischemic heart disease; J44.0 Chronic obstructive pulmonary disease with (acute) lower respiratory infection; N13.6 Pyonephrosis; N20.2 Calculus of kidney with calculus of ureter; Z68.42 Body mass index [BMI] 45.0-49.9, adult; Z20.822 Contact with and (suspected) exposure to COVID-19; R65.20 Severe sepsis without septic shock; B96.1 Klebsiella pneumoniae [K. pneumoniae] as the cause of diseases classified elsewhere; E88.09 Other disorders of plasma-protein metabolism, not elsewhere classified; E66.01 Morbid (severe) obesity due to excess calories; E78.5 Hyperlipidemia, unspecified; E11.22 Type 2 diabetes mellitus with diabetic chronic kidney disease; G89.29 Other chronic pain; I25.10 Atherosclerotic heart disease of native coronary artery without angina pectoris; D63.1 Anemia in chronic kidney disease; N18.30 Chronic kidney disease, stage 3 unspecified; M06.9 Rheumatoid arthritis, unspecified; Z79.4 Long term (current) use of insulin; Z79.899 Other long term (current) drug therapy; Z82.49 Family history of ischemic heart disease and other diseases of the circulatory system; Z80.9 Family history of malignant neoplasm, unspecified; Z83.3 Family history of diabetes mellitus; Z85.42 Personal history of malignant neoplasm of other parts of uterus; Z90.710 Acquired absence of both cervix and uterus; Z93.6 Other artificial openings of urinary tract status; Z99.81 Dependence on supplemental oxygen; Z88.8 Allergy status to other drugs, medicaments and biological substances
CPT/HCPCS: 36415; 71045; 74176; 74425; 76775; 76942; 80048; 80053; 81001; 82570; 82962; 83516; 83520; 83605; 83615; 83690; 83735; 83880; 84156; 84439; 84443; 84484; 85025; 85610; 85652; 85730; 86141; 86160; 86200; 86225; 86235; 86256; 86431; 86704; 86706; 86708; 86803; 87040; 87070; 87075; 87077; 87086; 87186; 87205; 87340; 93005; 94640; 96365; 96367; 96372; 97163; 99152; C1729; G0378; J0696; J1815; J2250; J2405; J7060

== ENCOUNTER 2022-08-18 19:43 | Inpatient (IN) | payer OTHER, MEDICAID ==
[~2022-08-18] VITALS: Ht 144.8 cm; Wt 97.0 kg
[~2022-08-18 19:43] MED LIST changes: +HYDR-4902 PO; -LOSA-39 PO
[2022-08-18 21:59] LABS: Basophils # (auto) 0.1 10 ^3/uL (0-0.2); Basophils % (auto) 0.9 % (0.0-2.0); Eosinophils # (auto) 0.2 10 ^3/uL (0-0.8); Eosinophils % (auto) 2.1 % (0.0-7.0); Hematocrit 31.1 % (36.0-46.0); Hemoglobin 10.5 g/dL (12.2-16.2); Lymphocytes # (auto) 2.4 10 ^3/uL (0.4-5.4); Mean Corpuscular Hemoglobin 31.4 pg (28.0-32.0); Mean Corpuscular Hgb Conc. 33.8 g/dL (32.0-36.0); Mean Corpuscular Volume 92.9 fL (80.0-100.0); Monocytes # (auto) 0.4 10 ^3/uL (0-1.3); Monocytes % (auto) 4.4 % (0.0-12.0); Neutrophils # (auto) 6.3 10 ^3/uL (1.6-8.6); Neutrophils % (auto) 66.6 % (37.0-80.0); Red Blood Cells 3.35 10^6/uL (4.0-5.20); White Blood Cell 9.4 10^3/uL (4.4-10.8)
[2022-08-18 22:13] LABS: Albumin 3.1 g/dL (3.4-5.0); BUN/Creatinine Ratio 18.3; Calcium 9.3 mg/dL (8.5-10.1); Potassium 3.7 mmol/L (3.5-5.1)
[2022-08-18 22:16] LABS: Bilirubin, Total 0.3 mg/dL (0.2-1.0); Total Protein 7.2 g/dL (6.4-8.2)
[2022-08-19] MEDS ORDERED: cefTRIAXone 1GM/50ML D5W 50 ML IV ONE (07:00)
[2022-08-19 08:03] LABS: Urine Specific Gravity 1.014 (1.001-1.035)
[2022-08-19 08:04] LABS: Urine Blood 1+ /uL (Negative)
[2022-08-19] MEDS ORDERED: ONDANSETRON HCL 4 MG/2 ML VIAL IV ONE (08:30)
[2022-08-19] MEDS ORDERED: HYDROmorphone HCL 2 MG/ML VL/or syr IV ONE (08:30)
[2022-08-19 08:51] LABS: Urine WBC TNTC /hpf (0 - 5); Urine WBC Clumps MODERATE /hpf (None Seen)
[2022-08-19 08:53] LABS: Urine Bacteria FEW /hpf (None Seen)
[2022-08-19] MEDS ORDERED: DEXTROSE (50%) 50ML SYRG IV PRN (10:45)
[2022-08-19] MEDS ORDERED: DOCUSATE SOD 100 MG CAP PO PRN (10:45)
[2022-08-19] MEDS ORDERED: ALBUTEROL SULF HFA 90MCG INH 200DOSE IN PRN (10:45)
[2022-08-19 11:27] VITALS: BP 120/60
[2022-08-19] MEDS: ACCU-CHEK COMFORT CURVE STRIP VI SCH ×3 (13:15→22:28)
[2022-08-19] MEDS: InsuLIN REG 1unit/0.01ml Soln (100units/ml) SC SCH ×3 (13:27→22:00)
[2022-08-19] MEDS: GABAPENTIN 300 MG CAP PO SCH ×2 (13:45→22:00)
[2022-08-19] MEDS ORDERED: MECLIZINE HCL 25 MG TAB PO PRN (14:00)
[2022-08-19] MEDS ORDERED: ALBUTEROL SULF 2.5 MG/0.5ML(0.5%) NEB SOLN NEB PRN ×2 (18:00→20:30)
[2022-08-19] MEDS: MORPHINE SULFATE INJ 2 MG/ml SYRG IV PRN (19:46)
[2022-08-19 22:00] VITALS: BP 141/57
[2022-08-19] MEDS: TOPIRAMATE 25 MG TAB PO SCH (22:27)
[2022-08-19] MEDS: LORATADINE 10 MG TAB PO SCH (22:27)
[2022-08-19] MEDS: OXYBUTYNIN CHL 5 MG TAB PO SCH (22:27)
[2022-08-19] MEDS: ATORVASTATIN 20 MG TAB PO SCH (22:27)
[2022-08-19 22:48] LABS: Creatinine, Urine 72 mg/dL (30.0-125.0); Sodium Urine 101 mmol/L (40-220)
[2022-08-20] MEDS: MORPHINE SULFATE INJ 2 MG/ml SYRG IV PRN ×3 (04:51→20:47)
[2022-08-20 05:00] VITALS: BP 146/57
[2022-08-20 06:31] LABS: Basophils # (auto) 0 10 ^3/uL (0-0.2); Basophils % (auto) 0.5 % (0.0-2.0); Eosinophils # (auto) 0.2 10 ^3/uL (0-0.8); Eosinophils % (auto) 2.3 % (0.0-7.0); Hematocrit 31.9 % (36.0-46.0); Hemoglobin 10.5 g/dL (12.2-16.2); Lymphocytes # (auto) 2.1 10 ^3/uL (0.4-5.4); Lymphocytes % (auto) 25.3 % (10.0-50.0); Mean Corpuscular Hemoglobin 30.8 pg (28.0-32.0); Mean Corpuscular Hgb Conc. 33.1 g/dL (32.0-36.0); Mean Corpuscular Volume 93.1 fL (80.0-100.0); Monocytes # (auto) 0.5 10 ^3/uL (0-1.3); Monocytes % (auto) 5.4 % (0.0-12.0); Neutrophils # (auto) 5.5 10 ^3/uL (1.6-8.6); Neutrophils % (auto) 66.5 % (37.0-80.0); Red Blood Cells 3.42 10^6/uL (4.0-5.20); Red Cell Distribution Width 13.9 % (11.8-14.3); White Blood Cell 8.3 10^3/uL (4.4-10.8)
[2022-08-20 06:52] LABS: Albumin 3.1 g/dL (3.4-5.0); BUN/Creatinine Ratio 17.9; Calcium 9.4 mg/dL (8.5-10.1); Potassium 3.8 mmol/L (3.5-5.1)
[2022-08-20] MEDS: InsuLIN REG 1unit/0.01ml Soln (100units/ml) SC SCH ×4 (06:53→22:33)
[2022-08-20] MEDS: ACCU-CHEK COMFORT CURVE STRIP VI SCH ×4 (06:53→22:50)
[2022-08-20 06:55] LABS: Bilirubin, Total 0.3 mg/dL (0.2-1.0); Total Protein 7.1 g/dL (6.4-8.2)
[2022-08-20 09:00] VITALS: BP 150/58
[2022-08-20] MEDS: PANTOPRAZOLE 40 MG TAB PO SCH (09:17)
[2022-08-20] MEDS: ASCORBIC ACID 1,000 MG TAB PO SCH (09:18)
[2022-08-20] MEDS: CHOLECALCIFEROL (VITD3) 1,000UNIT=25mCg TAB PO SCH (09:18)
[2022-08-20] MEDS: MULTIPLE VITAMINS W/ MINERALS TAB PO SCH (09:18)
[2022-08-20] MEDS: ASPirin-EC 81 mg tab PO SCH (09:18)
[2022-08-20] MEDS: ZINC SULFATE 220mg CAP or TAB PO SCH (09:19)
[2022-08-20] MEDS: GABAPENTIN 300 MG CAP PO SCH ×2 (09:19→22:00)
[2022-08-20] MEDS: FUROSEMIDE 40 MG TAB PO SCH (09:21)
[2022-08-20] MEDS: OXYBUTYNIN CHL 5 MG TAB PO SCH ×2 (09:22→22:32)
[2022-08-20] MEDS: CITALOPRAM HYDROBR 20 MG TAB PO SCH (09:22)
[2022-08-20] MEDS: TOPIRAMATE 25 MG TAB PO SCH ×2 (09:22→22:32)
[2022-08-20] MEDS: hydrOXYchloroQUINE SULFATE 200 MG TAB PO SCH (09:22)
[2022-08-20] MEDS: CYANOCOBALAMIN 500 MCG TAB PO SCH (09:25)
[2022-08-20] MEDS: BIOTIN 5 MG PO SCH (09:27)
[2022-08-20] MEDS: TOCOPHERYL ACETATE DL ALPHA 180 MG PO SCH (09:27)
[2022-08-20] MEDS: ONDANSETRON HCL 4 MG/2 ML VIAL IV PRN ×2 (12:32→20:52)
[2022-08-20 13:00] VITALS: BP 137/55
[2022-08-20 16:49] VITALS: BP 140/62
[2022-08-20 22:00] VITALS: BP 143/53
[2022-08-20] MEDS: LORATADINE 10 MG TAB PO SCH (22:27)
[2022-08-20] MEDS: ATORVASTATIN 20 MG TAB PO SCH (22:30)
[2022-08-20] MEDS: HYDROcodone-ACET 5/325MG TAB PO PRN (22:36)
[2022-08-21 05:00] VITALS: BP 155/67
[2022-08-21] MEDS: InsuLIN REG 1unit/0.01ml Soln (100units/ml) SC SCH ×3 (06:19→17:00)
[2022-08-21] MEDS: ACCU-CHEK COMFORT CURVE STRIP VI SCH ×3 (06:19→17:00)
[2022-08-21 09:01] VITALS: BP 131/67
[2022-08-21] MEDS: BIOTIN 5 MG PO SCH (09:40)
[2022-08-21] MEDS: ZINC SULFATE 220mg CAP or TAB PO SCH (09:40)
[2022-08-21] MEDS: MULTIPLE VITAMINS W/ MINERALS TAB PO SCH (09:40)
[2022-08-21] MEDS: TOCOPHERYL ACETATE DL ALPHA 180 MG PO SCH (09:40)
[2022-08-21] MEDS: PANTOPRAZOLE 40 MG TAB PO SCH (09:40)
[2022-08-21] MEDS: OXYBUTYNIN CHL 5 MG TAB PO SCH (09:41)
[2022-08-21] MEDS: CYANOCOBALAMIN 500 MCG TAB PO SCH (09:41)
[2022-08-21] MEDS: TOPIRAMATE 25 MG TAB PO SCH ×2 (09:41→21:50)
[2022-08-21] MEDS: ASCORBIC ACID 1,000 MG TAB PO SCH (09:41)
[2022-08-21] MEDS: CITALOPRAM HYDROBR 20 MG TAB PO SCH (09:41)
[2022-08-21] MEDS: FUROSEMIDE 40 MG TAB PO SCH (09:42)
[2022-08-21] MEDS: ASPirin-EC 81 mg tab PO SCH (09:42)
[2022-08-21] MEDS: GABAPENTIN 300 MG CAP PO SCH ×2 (09:43→21:50)
[2022-08-21] MEDS: CHOLECALCIFEROL (VITD3) 1,000UNIT=25mCg TAB PO SCH (09:43)
[2022-08-21] MEDS: hydrOXYchloroQUINE SULFATE 200 MG TAB PO SCH (09:43)
[2022-08-21] MEDS: ONDANSETRON HCL 4 MG/2 ML VIAL IV PRN (09:52)
[2022-08-21] MEDS: MORPHINE SULFATE INJ 2 MG/ml SYRG IV PRN (09:53)
[2022-08-21 13:00] VITALS: BP 131/53
[2022-08-21 16:57] VITALS: BP 12/58
[2022-08-21 20:00] VITALS: BP 140/64
[2022-08-21] MEDS ORDERED: cefTRIAXone 1GM/50ML D5W 50 ML IV ONE (20:30)
[2022-08-21] MEDS: ATORVASTATIN 20 MG TAB PO SCH (21:49)
[2022-08-21 22:00] VITALS: BP 140/64
[2022-08-21] MEDS: HYDROcodone-ACET 5/325MG TAB PO PRN (22:05)
[2022-08-22] VITALS (9 sets, daily range): BP systolic 127–156; BP diastolic 42–72
[2022-08-22] MEDS: cefTRIAXone 1GM/50ML D5W 50 ML IV SCH (08:25)
[2022-08-22] MEDS: HYDROcodone-ACET 5/325MG TAB PO PRN ×2 (08:26→22:48)
[2022-08-22] MEDS: GABAPENTIN 300 MG CAP PO SCH ×2 (10:00→22:00)
[2022-08-22] MEDS: ASPirin-EC 81 mg tab PO SCH (10:00)
[2022-08-22] MEDS: CITALOPRAM HYDROBR 20 MG TAB PO SCH (10:08)
[2022-08-22] MEDS: TOPIRAMATE 25 MG TAB PO SCH ×2 (10:09→22:48)
[2022-08-22] MEDS: hydrOXYchloroQUINE SULFATE 200 MG TAB PO SCH (10:09)
[2022-08-22] MEDS: PANTOPRAZOLE 40 MG TAB PO SCH (10:09)
[2022-08-22] MEDS: FUROSEMIDE 40 MG TAB PO SCH (10:09)
[2022-08-22] MEDS: CYANOCOBALAMIN 500 MCG TAB PO SCH (10:10)
[2022-08-22] MEDS: CHOLECALCIFEROL (VITD3) 1,000UNIT=25mCg TAB PO SCH (10:10)
[2022-08-22 10:30] LABS: INR 1.03 (0.9-1.15); Partial Thromboplastin Time 24.9 sec (24.6-33.4)
[2022-08-22] MEDS: ONDANSETRON HCL 4 MG/2 ML VIAL IV PRN (12:02)
[2022-08-22] MEDS ORDERED: IOHEXOL 350 MG/ML 100ML IJ ONE (13:02)
[2022-08-22] MEDS ORDERED: MIDAZOLAM HCL 2MG/2ML 2ml VIAL (1mg/ml) ONE ×2 (14:14→18:14)
[2022-08-22] MEDS ORDERED: fentaNYL CITRATE 100 MCG/2 ML VL ONE ×2 (14:14→18:14)
[2022-08-22] MEDS ORDERED: LIDOCAINE 2%HCL (LOCAL ANESTH.) INJ 20ML MDV ONE (14:38)
[2022-08-22] MEDS ORDERED: ONDANSETRON HCL 4 MG/2 ML VIAL ONE (18:15)
[2022-08-22] MEDS ORDERED: PROPOFOL 10 MG/ML 20 ML IV ONE (18:15)
[2022-08-22] MEDS ORDERED: KETOROLAC TROMETH 30 MG/ML 1ML VIAL ONE (18:15)
[2022-08-22] MEDS ORDERED: LIDOCAINE 2% (LOCAL ANESTH.) PF 5ml SDV ONE (18:15)
[2022-08-22] MEDS ORDERED: GLYCOPYRROLATE 0.2 MG/ML 1ML VIAL ONE (18:15)
[2022-08-22] MEDS ORDERED: DexAMETHasone SOD PHOS 10MG/1ML VIAL INJ ONE (18:15)
[2022-08-22] MEDS ORDERED: ePHEDrine SULFATE 50 MG/ML AMP ONE (18:15)
[2022-08-22] MEDS ORDERED: MEPERIDINE HCL (50 MG/ML) 1 ML VIAL ONE (18:15)
[2022-08-22] MEDS ORDERED: ACCU-CHEK COMFORT CURVE STRIP VI ONE (21:00)
[2022-08-22] MEDS ORDERED: ONDANSETRON HCL 4 MG/2 ML VIAL IV PRN (21:00)
[2022-08-22] MEDS ORDERED: HYDROmorphone HCL 2 MG/ML VL/or syr IV PRN (21:00)
[2022-08-22] MEDS: HYDROmorphone HCL 2 MG/ML VL/or syr ONE ×2 (21:16→21:27)
[2022-08-22] MEDS: ATORVASTATIN 20 MG TAB PO SCH (22:49)
[2022-08-22] MEDS: ENOXAPARIN SOD 30 MG/0.3 ML SYRINGE SC SCH (22:52)
[2022-08-23 05:00] VITALS: BP 127/56
[2022-08-23 05:56] LABS: Basophils # (auto) 0 10 ^3/uL (0-0.2); Basophils % (auto) 0.2 % (0.0-2.0); Eosinophils # (auto) 0 10 ^3/uL (0-0.8); Hematocrit 34.5 % (36.0-46.0); Hemoglobin 11.6 g/dL (12.2-16.2); Lymphocytes # (auto) 0.9 10 ^3/uL (0.4-5.4); Lymphocytes % (auto) 10.3 % (10.0-50.0); Mean Corpuscular Hemoglobin 30.7 pg (28.0-32.0); Mean Corpuscular Hgb Conc. 33.6 g/dL (32.0-36.0); Mean Corpuscular Volume 91.3 fL (80.0-100.0); Monocytes # (auto) 0.1 10 ^3/uL (0-1.3); Neutrophils # (auto) 7.6 10 ^3/uL (1.6-8.6); Neutrophils % (auto) 88.5 % (37.0-80.0); Red Blood Cells 3.78 10^6/uL (4.0-5.20); Red Cell Distribution Width 13.8 % (11.8-14.3); White Blood Cell 8.6 10^3/uL (4.4-10.8)
[2022-08-23 06:27] LABS: Calcium 9.6 mg/dL (8.5-10.1); Potassium 4.1 mmol/L (3.5-5.1)
[2022-08-23 06:29] LABS: BUN/Creatinine Ratio 17.9
[2022-08-23 09:00] VITALS: BP 145/68
[2022-08-23] MEDS: cefTRIAXone 1GM/50ML D5W 50 ML IV SCH (09:29)
[2022-08-23] MEDS: TOPIRAMATE 25 MG TAB PO SCH ×2 (09:30→22:56)
[2022-08-23] MEDS: ASPirin-EC 81 mg tab PO SCH (09:30)
[2022-08-23] MEDS: PANTOPRAZOLE 40 MG TAB PO SCH (09:30)
[2022-08-23] MEDS: CITALOPRAM HYDROBR 20 MG TAB PO SCH (09:30)
[2022-08-23] MEDS: CYANOCOBALAMIN 500 MCG TAB PO SCH (09:31)
[2022-08-23] MEDS: CHOLECALCIFEROL (VITD3) 1,000UNIT=25mCg TAB PO SCH (09:31)
[2022-08-23] MEDS: GABAPENTIN 300 MG CAP PO SCH ×2 (09:32→22:00)
[2022-08-23] MEDS: hydrOXYchloroQUINE SULFATE 200 MG TAB PO SCH (09:32)
[2022-08-23] MEDS: ENOXAPARIN SOD 30 MG/0.3 ML SYRINGE SC SCH (09:32)
[2022-08-23] MEDS: FUROSEMIDE 40 MG TAB PO SCH (09:39)
[2022-08-23] MEDS ORDERED: SODIUM CHLORIDE 0.9% 500 ML IV ONE (10:45)
[2022-08-23] MEDS ORDERED: CEPH-510 PO (10:58)
[2022-08-23] MEDS ORDERED: SUCCINYLCHOLINE CHLORIDE 20 MG/ML 10ML VIAL IV ONE (12:48)
[2022-08-23 13:00] VITALS: BP 155/65
[2022-08-23] MEDS: SODIUM CHLORIDE 0.9% 1,000 ML IV SCH (16:30)
[2022-08-23 16:56] VITALS: BP 155/67
[2022-08-23] MEDS: HYDROcodone-ACET 5/325MG TAB PO PRN (19:09)
[2022-08-23] MEDS: ONDANSETRON HCL 4 MG/2 ML VIAL IV PRN (22:55)
[2022-08-23] MEDS: ATORVASTATIN 20 MG TAB PO SCH (22:56)
[2022-08-23 23:06] VITALS: BP 143/56
[2022-08-24 05:26] VITALS: BP 133/55
[2022-08-24] MEDS: SODIUM CHLORIDE 0.9% 1,000 ML IV SCH (06:18)
[2022-08-24] MEDS ORDERED: HYDR-4902 PO (09:42)
[2022-08-24] MEDS: ENOXAPARIN SOD 30 MG/0.3 ML SYRINGE SC SCH (10:00)
[2022-08-24] MEDS: GABAPENTIN 300 MG CAP PO SCH (10:00)
[2022-08-24] MEDS: PANTOPRAZOLE 40 MG TAB PO SCH (10:37)
[2022-08-24] MEDS: CITALOPRAM HYDROBR 20 MG TAB PO SCH (10:37)
[2022-08-24] MEDS: TOPIRAMATE 25 MG TAB PO SCH (10:37)
[2022-08-24] MEDS: ASPirin-EC 81 mg tab PO SCH (10:37)
[2022-08-24] MEDS: cefTRIAXone 1GM/50ML D5W 50 ML IV SCH (10:37)
[2022-08-24] MEDS: hydrOXYchloroQUINE SULFATE 200 MG TAB PO SCH (10:38)
[2022-08-24] MEDS: FUROSEMIDE 40 MG TAB PO SCH (10:39)
[2022-08-24] MEDS: CHOLECALCIFEROL (VITD3) 1,000UNIT=25mCg TAB PO SCH (10:40)
[2022-08-24] MEDS: CYANOCOBALAMIN 500 MCG TAB PO SCH (10:44)
[2022-08-24] MEDS: HYDROcodone-ACET 5/325MG TAB PO PRN (10:53)
[2022-08-24 13:00] VITALS: BP 130/55
== END 2022-08-24 15:14 | disposition home or self-care (01) | DRG 699 ==
LOC: ER 19:43 → OVERFLOW 08-19 10:47 → WEST WING 08-19 17:02
PROVIDERS: ADMIT Nurse Practitioner Family; ATTEND Nurse Practitioner Acute Care
PROC: BT121ZZ Fluoroscopy of Left Kidney using Low Osmolar Contrast (ICD-10-PCS; 2022-08-22)
PROC: 0T25X0Z Change Drainage Device in Kidney, External Approach (ICD-10-PCS; principal; 2022-08-22 19:35)
DX: T83.012A Breakdown (mechanical) of nephrostomy catheter, initial encounter (principal); I13.0 Hypertensive heart and chronic kidney disease with heart failure and stage 1 through stage 4 chronic kidney disease, or unspecified chronic kidney disease; N20.2 Calculus of kidney with calculus of ureter; N17.9 Acute kidney failure, unspecified; Z68.42 Body mass index [BMI] 45.0-49.9, adult; Y73.2 Prosthetic and other implants, materials and accessory gastroenterology and urology devices associated with adverse incidents; D64.9 Anemia, unspecified; Z20.822 Contact with and (suspected) exposure to COVID-19; E11.22 Type 2 diabetes mellitus with diabetic chronic kidney disease; E11.65 Type 2 diabetes mellitus with hyperglycemia; E27.8 Other specified disorders of adrenal gland; E78.5 Hyperlipidemia, unspecified; I25.10 Atherosclerotic heart disease of native coronary artery without angina pectoris; J44.9 Chronic obstructive pulmonary disease, unspecified; K43.9 Ventral hernia without obstruction or gangrene; E66.9 Obesity, unspecified; E78.00 Pure hypercholesterolemia, unspecified; N13.9 Obstructive and reflux uropathy, unspecified; N30.90 Cystitis, unspecified without hematuria; M47.815 Spondylosis without myelopathy or radiculopathy, thoracolumbar region; N18.9 Chronic kidney disease, unspecified; Z88.6 Allergy status to analgesic agent; Z88.8 Allergy status to other drugs, medicaments and biological substances; Z82.49 Family history of ischemic heart disease and other diseases of the circulatory system; Z80.9 Family history of malignant neoplasm, unspecified; Z83.3 Family history of diabetes mellitus; Z90.710 Acquired absence of both cervix and uterus; Y92.89 Other specified places as the place of occurrence of the external cause
CPT/HCPCS: 36415; 71045; 74018; 74176; 74425; 76000; 80048; 80053; 81003; 81015; 82570; 82962; 83036; 83690; 83880; 84300; 85025; 85610; 85730; 87086; 87088; 87186; 87426; 87804; 93005; 96365; 96366; 96375; G0378; J0330; J0696; J1100; J1815; J1885; J2001; J2250; J2405; J2704

== ENCOUNTER → 2022-10-03 | Day surgery (SDC) | payer OTHER, MEDICAID ==
[2022-09-30 11:43] LABS: Basophils # (auto) 0.1 10 ^3/uL (0-0.2); Basophils % (auto) 0.7 % (0.0-2.0); Eosinophils # (auto) 0 10 ^3/uL (0-0.8); Eosinophils % (auto) 0.4 % (0.0-7.0); Hematocrit 38.3 % (36.0-46.0); Hemoglobin 12.3 g/dL (12.2-16.2); Lymphocytes # (auto) 4.8 10 ^3/uL (0.4-5.4); Lymphocytes % (auto) 35.5 % (10.0-50.0); Mean Corpuscular Hemoglobin 29.5 pg (28.0-32.0); Mean Corpuscular Hgb Conc. 32.1 g/dL (32.0-36.0); Monocytes # (auto) 0.5 10 ^3/uL (0-1.3); Monocytes % (auto) 3.5 % (0.0-12.0); Neutrophils # (auto) 8.2 10 ^3/uL (1.6-8.6); Neutrophils % (auto) 59.9 % (37.0-80.0); Red Blood Cells 4.16 10^6/uL (4.0-5.20); Red Cell Distribution Width 14.2 % (11.8-14.3); White Blood Cell 13.6 10^3/uL (4.4-10.8)
[2022-09-30 12:09] LABS: Albumin 4.2 g/dL (3.4-5.0); Potassium 3.4 mmol/L (3.5-5.1)
[2022-09-30 12:12] LABS: Urine Bacteria NONE SEEN /hpf (None Seen); Urine Blood Negative /uL (Negative); Urine WBC 94 /hpf (0 - 5)
[2022-09-30 12:18] LABS: BUN/Creatinine Ratio 23.9; Bilirubin, Total 0.5 mg/dL (0.2-1.0); Calcium 9.8 mg/dL (8.5-10.1); Total Protein 7.8 g/dL (6.4-8.2)
[2022-09-30 12:20] LABS: INR 0.95 (0.9-1.15); Partial Thromboplastin Time 21.4 sec (24.6-33.4)
[~2022-10-03] VITALS: Ht 147.3 cm; Wt 87.5 kg
[~2022-10-03] MED LIST changes: -CITA-77 PO; +DOCU100T15 PO; +GLYCOPYRROLATE 0.2 MG/ML 1ML VIAL ONE; -HYDR-4902 PO; +HYDR50TA15 PO; +IOHEXOL 300 MG/ML 100ML BOTTLE IJ ONE; -LORA-622 PO; +LOSA-39 PO; -MECL12.514 PO; +METH2.5T PO; +MIDAZOLAM HCL 2MG/2ML 2ml VIAL (1mg/ml) ONE; +NEOSTIGMINE 1 MG/ML INJ (10mg/10ML VIAL) ONE; +ONDANSETRON HCL 4 MG/2 ML VIAL ONE; +POLY33504 PO; +POTA10TA51 PO; -PRED20TA2 PO; +PROPOFOL 10 MG/ML 20 ML IV ONE; +ROCURONIUM 10MG/ML 10ML VIAL IV ONE; +TRIA0.02 EX; +ceFAZolin 1GM/50ML 100 ML IV ONE; +fentaNYL CITRATE 100 MCG/2 ML VL ONE
[2022-10-03 14:05] VITALS: BP 145/64
== END | disposition home or self-care (01) ==
LOC: SUR 08:12
PROVIDERS: ATTEND Urology
DX: N20.0 Calculus of kidney (principal); N39.0 Urinary tract infection, site not specified; Z20.822 Contact with and (suspected) exposure to COVID-19; J44.9 Chronic obstructive pulmonary disease, unspecified; Z90.710 Acquired absence of both cervix and uterus; E11.9 Type 2 diabetes mellitus without complications
CPT/HCPCS: 36415; 50590; 52005; 80053; 81001; 82962; 85025; 85610; 85730; 87086; C1769; J0690; J2250; J2405; J2704; J3010; J7030; Q9967; U0003

== ENCOUNTER → 2022-10-27 | Outpatient (CLI) | payer OTHER, MEDICAID ==
[~2022-10-27] MED LIST changes: -GLYCOPYRROLATE 0.2 MG/ML 1ML VIAL ONE; -IOHEXOL 300 MG/ML 100ML BOTTLE IJ ONE; -MIDAZOLAM HCL 2MG/2ML 2ml VIAL (1mg/ml) ONE; -NEOSTIGMINE 1 MG/ML INJ (10mg/10ML VIAL) ONE; -ONDANSETRON HCL 4 MG/2 ML VIAL ONE; -PROPOFOL 10 MG/ML 20 ML IV ONE; -ROCURONIUM 10MG/ML 10ML VIAL IV ONE; -ceFAZolin 1GM/50ML 100 ML IV ONE; -fentaNYL CITRATE 100 MCG/2 ML VL ONE
[2022-10-27 12:20] LABS: BUN/Creatinine Ratio 20.2; Calcium 9.7 mg/dL (8.5-10.1); Potassium 3.6 mmol/L (3.5-5.1)
== END | disposition home or self-care (01) ==
LOC: LAB 11:18
PROVIDERS: ATTEND Urology
DX: N20.0 Calculus of kidney (principal)
CPT/HCPCS: 36415; 80048

== ENCOUNTER 2022-12-02 16:38 | Inpatient (IN) | payer OTHER, MEDICAID ==
[~2022-12-02] VITALS: Ht 152.4 cm; Wt 95.5 kg
[2022-12-02] MEDS ORDERED: methylPREDNISolone SOD SUCC 125 MG/2 ML VL IV ONE (16:45)
[2022-12-02 17:15] LABS: Basophils # (auto) 0.1 10 ^3/uL (0-0.2); Basophils % (auto) 0.8 % (0.0-2.0); Eosinophils # (auto) 0 10 ^3/uL (0-0.8); Eosinophils % (auto) 0.5 % (0.0-7.0); Hematocrit 32.3 % (36.0-46.0); Hemoglobin 10.7 g/dL (12.2-16.2); Lymphocytes # (auto) 2.3 10 ^3/uL (0.4-5.4); Lymphocytes % (auto) 24.3 % (10.0-50.0); Mean Corpuscular Hemoglobin 30.1 pg (28.0-32.0); Mean Corpuscular Volume 91.2 fL (80.0-100.0); Monocytes # (auto) 0.5 10 ^3/uL (0-1.3); Neutrophils # (auto) 6.6 10 ^3/uL (1.6-8.6); Neutrophils % (auto) 69.4 % (37.0-80.0); Red Blood Cells 3.54 10^6/uL (4.0-5.20); Red Cell Distribution Width 13.9 % (11.8-14.3); White Blood Cell 9.5 10^3/uL (4.4-10.8)
[2022-12-02 17:30] LABS: Albumin 2.9 g/dL (3.4-5.0); Calcium 8.6 mg/dL (8.5-10.1); Magnesium 2.3 mg/dL (1.6-2.6); Potassium 3.5 mmol/L (3.5-5.1)
[2022-12-02 17:33] LABS: BUN/Creatinine Ratio 16.7; Bilirubin, Total 0.6 mg/dL (0.2-1.0); Total Protein 6.6 g/dL (6.4-8.2)
[2022-12-02] MEDS ORDERED: PIPERACILLIN-TAZOB 3.375GM 100 ML IV ONE (19:30)
[2022-12-03 02:22] LABS: Urine Bacteria FEW /hpf (None Seen); Urine Blood Negative /uL (Negative); Urine Specific Gravity 1.019 (1.001-1.035); Urine WBC 6 /hpf (0 - 5)
[2022-12-03] MEDS ORDERED: DEXTROSE (50%) 50ML SYRG IV PRN (02:30)
[2022-12-03] MEDS ORDERED: DOCUSATE SOD 100 MG CAP PO PRN (02:30)
[2022-12-03] MEDS ORDERED: ONDANSETRON HCL 4 MG/2 ML VIAL IV PRN (02:30)
[2022-12-03] MEDS ORDERED: NITROGLYCERIN 0.4 MG SL TAB SL PRN (02:30)
[2022-12-03] MEDS ORDERED: SODIUM CHLORIDE 0.9% 1,000 ML IV SCH (02:30)
[2022-12-03] MEDS ORDERED: MORPHINE SULFATE INJ 2 MG/ml SYRG IV PRN (02:30)
[2022-12-03] MEDS ORDERED: ALBUMIN 25% 100 ML IV ONE (02:30)
[2022-12-03] MEDS: ACCU-CHEK COMFORT CURVE STRIP VI SCH ×4 (06:19→22:23)
[2022-12-03 06:23] LABS: Basophils # (auto) 0 10 ^3/uL (0-0.2); Basophils % (auto) 0.2 % (0.0-2.0); Eosinophils # (auto) 0 10 ^3/uL (0-0.8); Hematocrit 28.1 % (36.0-46.0); Hemoglobin 9.4 g/dL (12.2-16.2); Lymphocytes # (auto) 0.6 10 ^3/uL (0.4-5.4); Lymphocytes % (auto) 9.8 % (10.0-50.0); Mean Corpuscular Hemoglobin 30.8 pg (28.0-32.0); Mean Corpuscular Hgb Conc. 33.5 g/dL (32.0-36.0); Monocytes # (auto) 0.1 10 ^3/uL (0-1.3); Monocytes % (auto) 1.6 % (0.0-12.0); Neutrophils # (auto) 5.8 10 ^3/uL (1.6-8.6); Neutrophils % (auto) 88.4 % (37.0-80.0); Nucleated Red Blood Cells % 0.1 %; Red Blood Cells 3.05 10^6/uL (4.0-5.20); Red Cell Distribution Width 13.7 % (11.8-14.3); White Blood Cell 6.5 10^3/uL (4.4-10.8)
[2022-12-03] MEDS: methylPREDNISolone SOD SUCC 40 MG/ML VL IV SCH ×3 (06:30→22:22)
[2022-12-03] MEDS: InsuLIN REG 1unit/0.01ml Soln (100units/ml) SC SCH ×4 (06:32→22:24)
[2022-12-03 06:35] LABS: Albumin 2.9 g/dL (3.4-5.0); Calcium 9.1 mg/dL (8.5-10.1); Potassium 3.5 mmol/L (3.5-5.1)
[2022-12-03 06:40] LABS: BUN/Creatinine Ratio 18.8; Bilirubin, Total 0.4 mg/dL (0.2-1.0); Total Protein 7.3 g/dL (6.4-8.2)
[2022-12-03] MEDS: ASPirin 81 mg TAB PO SCH (10:37)
[2022-12-03] MEDS: FAMOTIDINE (10MG/ML) 2ML VL IV SCH ×2 (10:37→22:22)
[2022-12-03] MEDS: AZITHROMYCIN 500MG/ 250ML 250 ML IV SCH (10:38)
[2022-12-03] MEDS: HYDROcodone-ACET 5/325MG TAB PO PRN (10:58)
[2022-12-03] MEDS ORDERED: cefTRIAXone 1GM/50ML D5W 50 ML IV ONE (12:30)
[2022-12-03] MEDS ORDERED: ALBUTEROL SULF 2.5 MG/0.5ML(0.5%) NEB SOLN NEB PRN (12:30)
[2022-12-03] MEDS ORDERED: INSULIN LANTUS (GLARGINE) 1 /0.01ml (100units/ml) SC ONE (12:30)
[2022-12-03] MEDS: IPRATROPIUM BROM 0.5 MG/2.5ML INH SOL NEB PRN (14:02)
[2022-12-03 15:11] VITALS: BP 105/36
[2022-12-03 21:57] VITALS: BP 135/53
[2022-12-03 22:00] VITALS: BP 135/53
[2022-12-03 22:02] VITALS: BP 135/53
[2022-12-03] MEDS ORDERED: PRED20TA2 (22:20)
[2022-12-03] MEDS ORDERED: METH500T22 PO (22:20)
[2022-12-03] MEDS ORDERED: FOLI1TAB6 PO (22:20)
[2022-12-03] MEDS ORDERED: LORA-622 PO (22:20)
[2022-12-03] MEDS ORDERED: INSU1INJ19 SC (22:20)
[2022-12-03] MEDS: ATORVASTATIN 20 MG TAB PO SCH (22:22)
[2022-12-04] MEDS: ACETAMINOPHEN 325 MG TAB PO PRN (00:20)
[2022-12-04 05:00] VITALS: BP 147/59
[2022-12-04] MEDS: methylPREDNISolone SOD SUCC 40 MG/ML VL IV SCH ×3 (05:30→22:08)
[2022-12-04] MEDS: ACCU-CHEK COMFORT CURVE STRIP VI SCH ×4 (06:03→22:09)
[2022-12-04] MEDS: InsuLIN REG 1unit/0.01ml Soln (100units/ml) SC SCH ×4 (06:06→22:11)
[2022-12-04] MEDS: INSULIN LANTUS (GLARGINE) 1 /0.01ml (100units/ml) SC SCH (06:07)
[2022-12-04 07:08] LABS: Basophils # (auto) 0 10 ^3/uL (0-0.2); Basophils % (auto) 0.1 % (0.0-2.0); Eosinophils # (auto) 0 10 ^3/uL (0-0.8); Hematocrit 28.6 % (36.0-46.0); Hemoglobin 9.7 g/dL (12.2-16.2); Lymphocytes # (auto) 1.3 10 ^3/uL (0.4-5.4); Lymphocytes % (auto) 8.1 % (10.0-50.0); Mean Corpuscular Hemoglobin 30.6 pg (28.0-32.0); Mean Corpuscular Hgb Conc. 33.9 g/dL (32.0-36.0); Mean Corpuscular Volume 90.2 fL (80.0-100.0); Monocytes # (auto) 0.4 10 ^3/uL (0-1.3); Monocytes % (auto) 2.5 % (0.0-12.0); Neutrophils # (auto) 13.9 10 ^3/uL (1.6-8.6); Neutrophils % (auto) 89.3 % (37.0-80.0); Nucleated Red Blood Cells % 0.1 %; Red Blood Cells 3.17 10^6/uL (4.0-5.20); Red Cell Distribution Width 13.9 % (11.8-14.3); White Blood Cell 15.6 10^3/uL (4.4-10.8)
[2022-12-04 07:36] LABS: Albumin 2.7 g/dL (3.4-5.0); BUN/Creatinine Ratio 25.5; Bilirubin, Total 0.3 mg/dL (0.2-1.0); Calcium 9.9 mg/dL (8.5-10.1); Total Protein 7.1 g/dL (6.4-8.2)
[2022-12-04 08:00] VITALS: BP 142/63
[2022-12-04] MEDS: ASPirin 81 mg TAB PO SCH (08:56)
[2022-12-04] MEDS: FAMOTIDINE (10MG/ML) 2ML VL IV SCH (08:56)
[2022-12-04] MEDS: cefTRIAXone 1GM/50ML D5W 50 ML IV SCH (08:57)
[2022-12-04] MEDS: AZITHROMYCIN 500MG/ 250ML 250 ML IV SCH (08:57)
[2022-12-04 12:00] VITALS: BP 138/47
[2022-12-04] MEDS ORDERED: FUROSEMIDE 20 MG TAB PO ONE (12:30)
[2022-12-04 16:00] VITALS: BP 140/45
[2022-12-04] MEDS: LOSARTAN POTASSIUM 50 MG TAB PO SCH (17:45)
[2022-12-04 22:00] VITALS: BP 163/62
[2022-12-04] MEDS ORDERED: ALBUTEROL SULF 2.5 MG/0.5ML(0.5%) NEB SOLN NEB SCH (22:00)
[2022-12-04] MEDS ORDERED: PATIENTS OWN MEDICATION (Docusate Sodium 100 MG) PO SCH (22:00)
[2022-12-04] MEDS: DOCUSATE SOD 100 MG CAP PO SCH (22:08)
[2022-12-04] MEDS: ATORVASTATIN 20 MG TAB PO SCH (22:08)
[2022-12-04] MEDS: TOPIRAMATE 25 MG TAB PO SCH (22:08)
[2022-12-04] MEDS: OXYBUTYNIN CHL 5 MG TAB PO SCH (22:09)
[2022-12-04] MEDS: IPRATROPIUM BROM 0.5 MG/2.5ML INH SOL NEB PRN (23:22)
[2022-12-05] MEDS ORDERED: ALBUTEROL SULF 2.5 MG/0.5ML(0.5%) NEB SOLN NEB SCH
[2022-12-05 05:00] VITALS: BP 154/69
[2022-12-05] MEDS: methylPREDNISolone SOD SUCC 40 MG/ML VL IV SCH ×3 (05:12→22:17)
[2022-12-05] MEDS: ACCU-CHEK COMFORT CURVE STRIP VI SCH ×4 (06:13→22:19)
[2022-12-05] MEDS: INSULIN LANTUS (GLARGINE) 1 /0.01ml (100units/ml) SC SCH (06:15)
[2022-12-05] MEDS: InsuLIN REG 1unit/0.01ml Soln (100units/ml) SC SCH ×4 (06:16→22:19)
[2022-12-05 07:31] LABS: Basophils # (auto) 0 10 ^3/uL (0-0.2); Basophils % (auto) 0.2 % (0.0-2.0); Eosinophils # (auto) 0 10 ^3/uL (0-0.8); Hematocrit 30.2 % (36.0-46.0); Hemoglobin 10.1 g/dL (12.2-16.2); Lymphocytes # (auto) 1.2 10 ^3/uL (0.4-5.4); Lymphocytes % (auto) 7.3 % (10.0-50.0); Mean Corpuscular Hemoglobin 30.5 pg (28.0-32.0); Mean Corpuscular Hgb Conc. 33.3 g/dL (32.0-36.0); Mean Corpuscular Volume 91.5 fL (80.0-100.0); Monocytes # (auto) 0.5 10 ^3/uL (0-1.3); Monocytes % (auto) 2.9 % (0.0-12.0); Neutrophils # (auto) 14.5 10 ^3/uL (1.6-8.6); Neutrophils % (auto) 89.6 % (37.0-80.0); Nucleated Red Blood Cells % 0.1 %; Red Cell Distribution Width 13.9 % (11.8-14.3); White Blood Cell 16.1 10^3/uL (4.4-10.8)
[2022-12-05 08:22] LABS: BUN/Creatinine Ratio 26.2; Magnesium 2.9 mg/dL (1.6-2.6)
[2022-12-05 08:35] LABS: Potassium 4.2 mmol/L (3.5-5.1)
[2022-12-05] MEDS: OXYBUTYNIN CHL 5 MG TAB PO SCH ×2 (08:47→22:17)
[2022-12-05] MEDS: FOLIC ACID 1 MG TAB PO SCH (08:47)
[2022-12-05] MEDS: TOPIRAMATE 25 MG TAB PO SCH ×2 (08:48→22:18)
[2022-12-05] MEDS: ASPirin-EC 81 mg tab PO SCH (08:48)
[2022-12-05] MEDS: LORATADINE 10 MG TAB PO SCH (08:48)
[2022-12-05] MEDS: PANTOPRAZOLE 40 MG TAB PO SCH (08:48)
[2022-12-05] MEDS: FUROSEMIDE 20 MG TAB PO SCH (08:49)
[2022-12-05] MEDS: POTASSIUM CHL 10 Meq TABLET PO SCH (08:49)
[2022-12-05] MEDS: DOCUSATE SOD 100 MG CAP PO SCH ×2 (08:49→22:17)
[2022-12-05] MEDS: AZITHROMYCIN 500MG/ 250ML 250 ML IV SCH (08:49)
[2022-12-05] MEDS: cefTRIAXone 1GM/50ML D5W 50 ML IV SCH (08:49)
[2022-12-05 09:00] VITALS: BP 156/74
[2022-12-05] MEDS: hydrOXYchloroQUINE SULFATE 200 MG TAB PO SCH (09:41)
[2022-12-05] MEDS ORDERED: MANNITOL FTV 25% 12.5 GM/50 ML 50 ML IV ONE (12:30)
[2022-12-05 13:00] VITALS: BP 127/75
[2022-12-05 14:01] LABS: Hepatitis C Antibody Negative (Negative)
[2022-12-05 17:00] VITALS: BP 143/67
[2022-12-05] MEDS: HYDROcodone-ACET 5/325MG TAB PO PRN (17:16)
[2022-12-05] MEDS: LOSARTAN POTASSIUM 50 MG TAB PO SCH (18:01)
[2022-12-05] MEDS: ALBUTEROL SULF 2.5 MG/0.5ML(0.5%) NEB SOLN NEB SCH (18:41)
[2022-12-05] MEDS: IPRATROPIUM BROM 0.5 MG/2.5ML INH SOL NEB SCH (18:41)
[2022-12-05 22:00] VITALS: BP 138/73
[2022-12-05] MEDS: ATORVASTATIN 20 MG TAB PO SCH (22:18)
[2022-12-06] MEDS: IPRATROPIUM BROM 0.5 MG/2.5ML INH SOL NEB SCH ×4 (00:20→18:50)
[2022-12-06] MEDS: ALBUTEROL SULF 2.5 MG/0.5ML(0.5%) NEB SOLN NEB SCH ×4 (00:20→18:50)
[2022-12-06] MEDS: ACETAMINOPHEN 325 MG TAB PO PRN (03:55)
[2022-12-06 05:00] VITALS: BP 149/59
[2022-12-06 05:38] LABS: Hematocrit 31.5 % (36.0-46.0); Hemoglobin 10.6 g/dL (12.2-16.2); Mean Corpuscular Hemoglobin 30.3 pg (28.0-32.0); Mean Corpuscular Hgb Conc. 33.7 g/dL (32.0-36.0); Mean Corpuscular Volume 89.8 fL (80.0-100.0); Red Blood Cells 3.51 10^6/uL (4.0-5.20); Red Cell Distribution Width 13.6 % (11.8-14.3); White Blood Cell 16.3 10^3/uL (4.4-10.8)
[2022-12-06 05:42] LABS: BUN/Creatinine Ratio 28.4 (10.0-20.0); Calcium 10.1 mg/dL (8.5-10.1); Potassium 4.4 mmol/L (3.5-5.1)
[2022-12-06 05:43] LABS: Band Neutrophils % (manual) 0; Basophils % (manual) 0 (0.0-2.0); Blast Cells 0; Eosinophils % (manual) 0 (0-7); Metamyelocytes % 0; Myelocytes % 0; Promyelocytes % 0; Reactive Lymphocytes 0
[2022-12-06] MEDS: methylPREDNISolone SOD SUCC 40 MG/ML VL IV SCH ×3 (06:29→21:50)
[2022-12-06] MEDS: INSULIN LANTUS (GLARGINE) 1 /0.01ml (100units/ml) SC SCH (06:30)
[2022-12-06] MEDS: ACCU-CHEK COMFORT CURVE STRIP VI SCH ×4 (06:30→21:50)
[2022-12-06] MEDS: InsuLIN REG 1unit/0.01ml Soln (100units/ml) SC SCH ×4 (06:31→21:48)
[2022-12-06 08:19] LABS: Lymphocytes % (manual) 16 (10.0-50.0); Monocytes % (manual) 7 (0-12)
[2022-12-06 09:00] VITALS: BP 141/56
[2022-12-06] MEDS: DOCUSATE SOD 100 MG CAP PO SCH ×2 (09:29→21:50)
[2022-12-06] MEDS: FOLIC ACID 1 MG TAB PO SCH (09:29)
[2022-12-06] MEDS: cefTRIAXone 1GM/50ML D5W 50 ML IV SCH (09:29)
[2022-12-06] MEDS: TOPIRAMATE 25 MG TAB PO SCH ×2 (09:30→21:50)
[2022-12-06] MEDS: OXYBUTYNIN CHL 5 MG TAB PO SCH ×2 (09:30→21:50)
[2022-12-06] MEDS: PANTOPRAZOLE 40 MG TAB PO SCH (09:30)
[2022-12-06] MEDS: POTASSIUM CHL 10 Meq TABLET PO SCH (09:30)
[2022-12-06] MEDS: ASPirin-EC 81 mg tab PO SCH (09:30)
[2022-12-06] MEDS: hydrOXYchloroQUINE SULFATE 200 MG TAB PO SCH (09:31)
[2022-12-06] MEDS: LORATADINE 10 MG TAB PO SCH (09:31)
[2022-12-06] MEDS: FUROSEMIDE 20 MG TAB PO SCH (09:32)
[2022-12-06] MEDS: AZITHROMYCIN 500MG/ 250ML 250 ML IV SCH (11:06)
[2022-12-06 13:00] VITALS: BP 149/72
[2022-12-06 16:29] VITALS: BP 135/75
[2022-12-06] MEDS: LOSARTAN POTASSIUM 50 MG TAB PO SCH (17:01)
[2022-12-06] MEDS: ATORVASTATIN 20 MG TAB PO SCH (21:50)
[2022-12-06 22:00] VITALS: BP 147/67
[2022-12-06] MEDS ORDERED: INSULIN LANTUS (GLARGINE) 1 /0.01ml (100units/ml) SC SCH (22:00)
[2022-12-07] MEDS: IPRATROPIUM BROM 0.5 MG/2.5ML INH SOL NEB SCH ×5 (00:07→23:28)
[2022-12-07] MEDS: ALBUTEROL SULF 2.5 MG/0.5ML(0.5%) NEB SOLN NEB SCH ×5 (00:08→23:28)
[2022-12-07 05:00] VITALS: BP 150/59
[2022-12-07] MEDS: methylPREDNISolone SOD SUCC 40 MG/ML VL IV SCH ×3 (06:05→21:55)
[2022-12-07] MEDS: InsuLIN REG 1unit/0.01ml Soln (100units/ml) SC SCH ×4 (06:07→21:49)
[2022-12-07] MEDS: ACCU-CHEK COMFORT CURVE STRIP VI SCH ×4 (06:08→21:55)
[2022-12-07] MEDS: INSULIN LANTUS (GLARGINE) 1 /0.01ml (100units/ml) SC SCH ×2 (06:08→21:48)
[2022-12-07] MEDS: cefTRIAXone 1GM/50ML D5W 50 ML IV SCH (08:22)
[2022-12-07 09:00] VITALS: BP 144/71
[2022-12-07] MEDS: AZITHROMYCIN 500MG/ 250ML 250 ML IV SCH (10:33)
[2022-12-07] MEDS: FOLIC ACID 1 MG TAB PO SCH (10:33)
[2022-12-07] MEDS: DOCUSATE SOD 100 MG CAP PO SCH ×2 (10:33→21:52)
[2022-12-07] MEDS: POTASSIUM CHL 10 Meq TABLET PO SCH (10:34)
[2022-12-07] MEDS: OXYBUTYNIN CHL 5 MG TAB PO SCH ×2 (10:34→21:54)
[2022-12-07] MEDS: TOPIRAMATE 25 MG TAB PO SCH ×2 (10:34→21:55)
[2022-12-07] MEDS: LORATADINE 10 MG TAB PO SCH (10:34)
[2022-12-07] MEDS: ASPirin-EC 81 mg tab PO SCH (10:34)
[2022-12-07] MEDS: PANTOPRAZOLE 40 MG TAB PO SCH (10:34)
[2022-12-07] MEDS: hydrOXYchloroQUINE SULFATE 200 MG TAB PO SCH (10:35)
[2022-12-07] MEDS: FUROSEMIDE 20 MG TAB PO SCH (10:35)
[2022-12-07] MEDS ORDERED: DEXTROSE (50%) 50ML SYRG IV PRN (12:00)
[2022-12-07 13:00] VITALS: BP 128/72
[2022-12-07 16:56] VITALS: BP 131/72
[2022-12-07] MEDS: LOSARTAN POTASSIUM 50 MG TAB PO SCH (18:15)
[2022-12-07] MEDS: ATORVASTATIN 20 MG TAB PO SCH (21:54)
[2022-12-07 22:00] VITALS: BP 112/72
[2022-12-08 05:00] VITALS: BP 110/60
[2022-12-08] MEDS: methylPREDNISolone SOD SUCC 40 MG/ML VL IV SCH ×3 (06:12→21:45)
[2022-12-08] MEDS: ACCU-CHEK COMFORT CURVE STRIP VI SCH ×4 (06:12→21:49)
[2022-12-08] MEDS: InsuLIN REG 1unit/0.01ml Soln (100units/ml) SC SCH ×4 (06:13→21:35)
[2022-12-08] MEDS: INSULIN LANTUS (GLARGINE) 1 /0.01ml (100units/ml) SC SCH ×2 (06:14→21:40)
[2022-12-08] MEDS: ALBUTEROL SULF 2.5 MG/0.5ML(0.5%) NEB SOLN NEB SCH ×2 (08:19→20:05)
[2022-12-08] MEDS: IPRATROPIUM BROM 0.5 MG/2.5ML INH SOL NEB SCH ×2 (08:19→20:05)
[2022-12-08 08:40] VITALS: BP 132/69
[2022-12-08] MEDS: ASPirin-EC 81 mg tab PO SCH (09:21)
[2022-12-08] MEDS: FUROSEMIDE 20 MG TAB PO SCH (09:22)
[2022-12-08] MEDS: PANTOPRAZOLE 40 MG TAB PO SCH (09:23)
[2022-12-08] MEDS: POTASSIUM CHL 10 Meq TABLET PO SCH (09:23)
[2022-12-08] MEDS: LORATADINE 10 MG TAB PO SCH (09:23)
[2022-12-08] MEDS: TOPIRAMATE 25 MG TAB PO SCH ×2 (09:23→21:44)
[2022-12-08] MEDS: FOLIC ACID 1 MG TAB PO SCH (09:24)
[2022-12-08] MEDS: OXYBUTYNIN CHL 5 MG TAB PO SCH ×2 (09:24→21:44)
[2022-12-08] MEDS: guaiFENesin-DM 100/10mg/5ml SYR PO PRN (09:24)
[2022-12-08] MEDS: DOCUSATE SOD 100 MG CAP PO SCH ×2 (09:24→21:45)
[2022-12-08] MEDS: cefTRIAXone 1GM/50ML D5W 50 ML IV SCH (09:24)
[2022-12-08] MEDS: hydrOXYchloroQUINE SULFATE 200 MG TAB PO SCH (09:27)
[2022-12-08] MEDS: AZITHROMYCIN 500MG/ 250ML 250 ML IV SCH (10:59)
[2022-12-08 12:54] VITALS: BP 140/67
[2022-12-08 15:05] VITALS: BP 129/56
[2022-12-08] MEDS: LOSARTAN POTASSIUM 50 MG TAB PO SCH (17:51)
[2022-12-08] MEDS: HYDROcodone-ACET 5/325MG TAB PO PRN (19:36)
[2022-12-08] MEDS: ATORVASTATIN 20 MG TAB PO SCH (21:44)
[2022-12-08 22:00] VITALS: BP 127/64
[2022-12-09] MEDS: ALBUTEROL SULF 2.5 MG/0.5ML(0.5%) NEB SOLN NEB SCH ×4 (00:57→18:47)
[2022-12-09] MEDS: IPRATROPIUM BROM 0.5 MG/2.5ML INH SOL NEB SCH ×4 (00:57→18:47)
[2022-12-09 04:52] VITALS: BP 140/55
[2022-12-09] MEDS: methylPREDNISolone SOD SUCC 40 MG/ML VL IV SCH ×2 (06:18→21:45)
[2022-12-09] MEDS: ACCU-CHEK COMFORT CURVE STRIP VI SCH ×4 (06:18→21:57)
[2022-12-09] MEDS: INSULIN LANTUS (GLARGINE) 1 /0.01ml (100units/ml) SC SCH ×2 (06:19→21:56)
[2022-12-09] MEDS: InsuLIN REG 1unit/0.01ml Soln (100units/ml) SC SCH ×4 (06:21→21:54)
[2022-12-09 09:00] VITALS: BP 117/67
[2022-12-09] MEDS: FOLIC ACID 1 MG TAB PO SCH (09:17)
[2022-12-09] MEDS: OXYBUTYNIN CHL 5 MG TAB PO SCH ×2 (09:17→21:45)
[2022-12-09] MEDS: ASPirin-EC 81 mg tab PO SCH (09:18)
[2022-12-09] MEDS: POTASSIUM CHL 10 Meq TABLET PO SCH (09:18)
[2022-12-09] MEDS: TOPIRAMATE 25 MG TAB PO SCH ×2 (09:19→21:45)
[2022-12-09] MEDS: LORATADINE 10 MG TAB PO SCH (09:19)
[2022-12-09] MEDS: hydrOXYchloroQUINE SULFATE 200 MG TAB PO SCH (09:19)
[2022-12-09] MEDS: PANTOPRAZOLE 40 MG TAB PO SCH (09:20)
[2022-12-09 09:21] VITALS: BP 140/55
[2022-12-09] MEDS: cefTRIAXone 1GM/50ML D5W 50 ML IV SCH (09:22)
[2022-12-09] MEDS: DOCUSATE SOD 100 MG CAP PO SCH ×2 (09:22→21:45)
[2022-12-09] MEDS: FUROSEMIDE 20 MG TAB PO SCH (09:22)
[2022-12-09] MEDS: guaiFENesin-DM 100/10mg/5ml SYR PO PRN (09:26)
[2022-12-09] MEDS: AZITHROMYCIN 250 MG TAB PO SCH (12:12)
[2022-12-09 13:00] VITALS: BP 141/70
[2022-12-09 16:57] VITALS: BP 120/63
[2022-12-09] MEDS: LOSARTAN POTASSIUM 50 MG TAB PO SCH (18:00)
[2022-12-09] MEDS: ATORVASTATIN 20 MG TAB PO SCH (21:45)
[2022-12-09 22:00] VITALS: BP 130/64
[2022-12-10] MEDS: IPRATROPIUM BROM 0.5 MG/2.5ML INH SOL NEB SCH ×4 (00:15→19:06)
[2022-12-10] MEDS: ALBUTEROL SULF 2.5 MG/0.5ML(0.5%) NEB SOLN NEB SCH ×4 (00:15→19:06)
[2022-12-10 05:00] VITALS: BP 134/62
[2022-12-10] MEDS: ACCU-CHEK COMFORT CURVE STRIP VI SCH ×4 (05:59→23:54)
[2022-12-10] MEDS: InsuLIN REG 1unit/0.01ml Soln (100units/ml) SC SCH ×3 (06:00→17:53)
[2022-12-10] MEDS: INSULIN LANTUS (GLARGINE) 1 /0.01ml (100units/ml) SC SCH (06:44)
[2022-12-10 09:00] VITALS: BP 101/52
[2022-12-10] MEDS: OXYBUTYNIN CHL 5 MG TAB PO SCH ×2 (09:06→23:53)
[2022-12-10] MEDS: FOLIC ACID 1 MG TAB PO SCH (09:06)
[2022-12-10] MEDS: LORATADINE 10 MG TAB PO SCH (09:06)
[2022-12-10] MEDS: cefTRIAXone 1GM/50ML D5W 50 ML IV SCH (09:06)
[2022-12-10] MEDS: DOCUSATE SOD 100 MG CAP PO SCH ×2 (09:06→23:52)
[2022-12-10] MEDS: methylPREDNISolone SOD SUCC 40 MG/ML VL IV SCH ×2 (09:06→23:52)
[2022-12-10] MEDS: hydrOXYchloroQUINE SULFATE 200 MG TAB PO SCH (09:07)
[2022-12-10] MEDS: ASPirin-EC 81 mg tab PO SCH (09:07)
[2022-12-10] MEDS: PANTOPRAZOLE 40 MG TAB PO SCH (09:07)
[2022-12-10] MEDS: FUROSEMIDE 20 MG TAB PO SCH (09:07)
[2022-12-10] MEDS: POTASSIUM CHL 10 Meq TABLET PO SCH (09:07)
[2022-12-10] MEDS: TOPIRAMATE 25 MG TAB PO SCH ×2 (09:08→23:53)
[2022-12-10] MEDS: AZITHROMYCIN 250 MG TAB PO SCH (09:08)
[2022-12-10 13:00] VITALS: BP 102/56
[2022-12-10] MEDS: guaiFENesin-DM 100/10mg/5ml SYR PO PRN (16:19)
[2022-12-10 16:45] VITALS: BP 112/46
[2022-12-10] MEDS: LOSARTAN POTASSIUM 50 MG TAB PO SCH (17:53)
[2022-12-10 22:00] VITALS: BP 116/67
[2022-12-10] MEDS: ATORVASTATIN 20 MG TAB PO SCH (23:53)
[2022-12-11] MEDS: InsuLIN REG 1unit/0.01ml Soln (100units/ml) SC SCH ×4 (00:01→17:39)
[2022-12-11 05:00] VITALS: BP 134/69
[2022-12-11] MEDS: ALBUTEROL SULF 2.5 MG/0.5ML(0.5%) NEB SOLN NEB SCH ×2 (06:35→11:34)
[2022-12-11] MEDS: IPRATROPIUM BROM 0.5 MG/2.5ML INH SOL NEB SCH ×2 (06:36→11:34)
[2022-12-11] MEDS: ACCU-CHEK COMFORT CURVE STRIP VI SCH ×3 (07:15→17:38)
[2022-12-11] MEDS: INSULIN LANTUS (GLARGINE) 1 /0.01ml (100units/ml) SC SCH ×2 (07:17)
[2022-12-11 09:11] VITALS: BP 127/53
[2022-12-11] MEDS: FOLIC ACID 1 MG TAB PO SCH (10:49)
[2022-12-11] MEDS: cefTRIAXone 1GM/50ML D5W 50 ML IV SCH (10:49)
[2022-12-11] MEDS: LORATADINE 10 MG TAB PO SCH (10:49)
[2022-12-11] MEDS: methylPREDNISolone SOD SUCC 40 MG/ML VL IV SCH (10:49)
[2022-12-11] MEDS: DOCUSATE SOD 100 MG CAP PO SCH (10:50)
[2022-12-11] MEDS: ASPirin-EC 81 mg tab PO SCH (10:50)
[2022-12-11] MEDS: PANTOPRAZOLE 40 MG TAB PO SCH (10:50)
[2022-12-11] MEDS: POTASSIUM CHL 10 Meq TABLET PO SCH (10:50)
[2022-12-11] MEDS: OXYBUTYNIN CHL 5 MG TAB PO SCH (10:50)
[2022-12-11] MEDS: hydrOXYchloroQUINE SULFATE 200 MG TAB PO SCH (10:50)
[2022-12-11] MEDS: AZITHROMYCIN 250 MG TAB PO SCH (10:51)
[2022-12-11] MEDS: TOPIRAMATE 25 MG TAB PO SCH (10:51)
[2022-12-11] MEDS: FUROSEMIDE 20 MG TAB PO SCH (10:52)
[2022-12-11] MEDS ORDERED: METH4PAK PO (12:26)
[2022-12-11] MEDS ORDERED: AZIT250T8 PO (12:26)
[2022-12-11 12:47] VITALS: BP 114/51
[2022-12-11 14:39] VITALS: BP 114/51
[2022-12-11] MEDS: LOSARTAN POTASSIUM 50 MG TAB PO SCH (17:38)
== END 2022-12-11 19:05 | disposition home or self-care (01) | DRG 177 ==
LOC: ER 16:38 → EDBD 16:38 → TELE 12-03 02:30 → TELE-WESTW 12-03 21:13
PROVIDERS: ADMIT Nurse Practitioner Family; ATTEND Internal Medicine
DX: J15.212 Pneumonia due to Methicillin resistant Staphylococcus aureus (principal); J96.21 Acute and chronic respiratory failure with hypoxia; J44.0 Chronic obstructive pulmonary disease with (acute) lower respiratory infection; J98.11 Atelectasis; N17.9 Acute kidney failure, unspecified; Z68.41 Body mass index [BMI] 40.0-44.9, adult; I13.0 Hypertensive heart and chronic kidney disease with heart failure and stage 1 through stage 4 chronic kidney disease, or unspecified chronic kidney disease; J44.1 Chronic obstructive pulmonary disease with (acute) exacerbation; E44.0 Moderate protein-calorie malnutrition; I24.9 Acute ischemic heart disease, unspecified; I50.32 Chronic diastolic (congestive) heart failure; N18.4 Chronic kidney disease, stage 4 (severe); N20.2 Calculus of kidney with calculus of ureter; E78.5 Hyperlipidemia, unspecified; E88.09 Other disorders of plasma-protein metabolism, not elsewhere classified; E66.01 Morbid (severe) obesity due to excess calories; E11.22 Type 2 diabetes mellitus with diabetic chronic kidney disease; D63.1 Anemia in chronic kidney disease; E87.6 Hypokalemia; M10.9 Gout, unspecified; Z79.4 Long term (current) use of insulin; Z90.89 Acquired absence of other organs; Z90.710 Acquired absence of both cervix and uterus; Z88.6 Allergy status to analgesic agent; Z88.1 Allergy status to other antibiotic agents; Z82.49 Family history of ischemic heart disease and other diseases of the circulatory system; Z83.3 Family history of diabetes mellitus; Z79.899 Other long term (current) drug therapy; Z80.9 Family history of malignant neoplasm, unspecified; Z82.3 Family history of stroke; Z85.42 Personal history of malignant neoplasm of other parts of uterus; Z87.891 Personal history of nicotine dependence; Z99.81 Dependence on supplemental oxygen
CPT/HCPCS: 36415; 71045; 74176; 80048; 80053; 81001; 82962; 83036; 83605; 83735; 83880; 84484; 85007; 85025; 85027; 86803; 87040; 87340; 87426; 93005; 93306; 94640; 96365; 96367; 96372; 96375; 97110; 97116; 97163; 97530; G0378; J0696; J1815; J2405; J2543; J3490; P9047

== ENCOUNTER 2022-12-22 17:24 | Emergency (ER) | payer OTHER, MEDICAID ==
[~2022-12-22] VITALS: Ht 154.9 cm; Wt 88.2 kg
[~2022-12-22 17:24] MED LIST changes: +AZIT250T8 PO; +FOLI1TAB6 PO; +LORA-622 PO; +METH4PAK PO; +METH500T22 PO
[2022-12-22 17:51] VITALS: BP 132/66
[2022-12-22 18:17] LABS: Basophils # (auto) 0.1 10 ^3/uL (0-0.2); Basophils % (auto) 0.7 % (0.0-2.0); Eosinophils # (auto) 0.1 10 ^3/uL (0-0.8); Eosinophils % (auto) 1.4 % (0.0-7.0); Hematocrit 34.7 % (36.0-46.0); Hemoglobin 11.7 g/dL (12.2-16.2); Lymphocytes # (auto) 3.2 10 ^3/uL (0.4-5.4); Lymphocytes % (auto) 32.2 % (10.0-50.0); Mean Corpuscular Hemoglobin 30.5 pg (28.0-32.0); Mean Corpuscular Hgb Conc. 33.7 g/dL (32.0-36.0); Mean Corpuscular Volume 90.4 fL (80.0-100.0); Monocytes # (auto) 0.5 10 ^3/uL (0-1.3); Monocytes % (auto) 4.7 % (0.0-12.0); Nucleated Red Blood Cells % 0.1 %; Red Blood Cells 3.84 10^6/uL (4.0-5.20); Red Cell Distribution Width 14.4 % (11.8-14.3); White Blood Cell 9.9 10^3/uL (4.4-10.8)
[2022-12-22 18:30] LABS: Albumin 3.5 g/dL (3.4-5.0); Magnesium 2.3 mg/dL (1.6-2.6); Potassium 3.9 mmol/L (3.5-5.1)
[2022-12-22 18:34] LABS: BUN/Creatinine Ratio 17.4 (10.0-20.0); Bilirubin, Total 0.8 mg/dL (0.2-1.0); Total Protein 6.6 g/dL (6.4-8.2)
[2022-12-22 19:09] LABS: INR 0.96 (0.9-1.15); Partial Thromboplastin Time 22.7 sec (24.6-33.4)
== END 2022-12-22 20:38 | disposition home or self-care (01) ==
LOC: ER 17:24
DX: H57.89 Other specified disorders of eye and adnexa (principal); I11.0 Hypertensive heart disease with heart failure; I50.9 Heart failure, unspecified; J44.9 Chronic obstructive pulmonary disease, unspecified; E11.9 Type 2 diabetes mellitus without complications; E78.5 Hyperlipidemia, unspecified; Z90.710 Acquired absence of both cervix and uterus; Z90.89 Acquired absence of other organs; Z79.4 Long term (current) use of insulin; Z79.82 Long term (current) use of aspirin; Z79.899 Other long term (current) drug therapy; Z79.2 Long term (current) use of antibiotics; Z88.1 Allergy status to other antibiotic agents; Z88.6 Allergy status to analgesic agent
CPT/HCPCS: 36415; 70450; 70480; 71045; 80053; 83735; 83880; 84484; 85025; 85610; 85730; 93005

== ENCOUNTER → 2023-03-08 | Outpatient (CLI) | payer OTHER, MEDICAID ==
[~2023-03-08] MED LIST changes: +ALBUTEROL SULF 2.5 MG/0.5ML(0.5%) NEB SOLN ONE; +AZIT-81 PO; -AZIT250T8 PO; +FOLI-119 PO; -FOLI1TAB6 PO; +GABA-1250 PO; -GABA300C10 PO; +HYDR-4297 PO; -HYDR50TA15 PO; -LOSA-39 PO; +LOSA100T58 PO; +METH-1181 PO; -METH500T22 PO; +OXYB5TAB10 PO; -OXYB5TAB61 PO; -PROC10TA2 PO; +PROC10TA6 PO; +VITA-89 PO; -VITA180C PO; +[UNRECOGNIZED DRUG - CODE] PO; -[UNRECOGNIZED DRUG - CODE] PO
== END | disposition home or self-care (01) ==
LOC: RT 09:30
PROVIDERS: ATTEND Internal Medicine Pulmonary Disease
DX: J44.9 Chronic obstructive pulmonary disease, unspecified (principal); J96.11 Chronic respiratory failure with hypoxia
CPT/HCPCS: 94060; 94727; 94729

== ENCOUNTER 2025-07-01 06:37 | Day surgery (SDC) | payer OTHER, MEDICAID ==
[~2025-07-01] VITALS: Ht 149.9 cm; Wt 99.8 kg
[~2025-07-01 06:37] MED LIST changes: -ALBUTEROL SULF 2.5 MG/0.5ML(0.5%) NEB SOLN ONE; +APIX5TAB PO; -ATO40T PO; +ATOR-507 PO; +AZIT-185 PO; -AZIT-81 PO; +CARV3.1240 PO; +CETI-195 PO; +DILT-14 PO; +FLUT1AER17 IN; +FLUT50SP28; -HYDR-4297 PO; +HYDR50TA47 PO; +LOSA-535 PO; -LOSA100T58 PO; +METO25TA93 PO; -OXYB5TAB10 PO; +OXYB5TAB14 PO; +POTA-36 PO; -POTA10TA51 PO
[2025-07-01] MEDS ORDERED: IODIXANOL 320MG/ML 100ML BTL IV ONE ×2 (07:37→08:28)
[2025-07-01] MEDS ORDERED: HEPARIN SODIUM (PORCINE) 5000 UNITS/ML 1ML VIAL ONE (08:03)
[2025-07-01] MEDS ORDERED: ANGIOMAX 250 MG VIAL IV ONE (08:03)
[2025-07-01] MEDS ORDERED: VERAPAMIL 2.5MG/ML INJ 2ML VIAL IV ONE (08:03)
[2025-07-01] MEDS ORDERED: fentaNYL CITRATE 100 MCG/2 ML VL ONE (08:03)
[2025-07-01] MEDS ORDERED: SODIUM CHL 0.9% 0 ML ONE (08:04)
[2025-07-01] MEDS ORDERED: LIDOCAINE 2%HCL (LOCAL ANESTH.) INJ 20ML MDV ONE (08:04)
[2025-07-01] MEDS ORDERED: MIDAZOLAM HCL 2MG/2ML 2ml VIAL (1mg/ml) ONE (08:04)
--- NOTE | 2025-07-01 08:51 | DVHOP2 ---
Operative Report Procedures performed: Left heart catheterization and bilateral coronary angiogram Moderate sedation Diagnosis: No angiographic evidence for epicardial coronary artery disease (normal coronaries) LVEF of 55% Tortuous coronaries in favor of hypertensive heart disease. Cardiac suggestion for management: Optimized medical therapy Lifestyle and risk factor modifications Findings: LVEF: 55% LVEDP: 12 mm Hg There was no transaortic valve pressure gradient Left main: Left main was coming off the left sinus of Valsalva. It was free of disease. LAD: LAD was coming off the left main. It provided a large diagonal. LAD wrapped around the apex. LAD was somehow tortuous. LAD throughout its course and branches was free of disease. LCX: LCX was coming off the left main. It provided a large obtuse marginal. It was somewhat tortuous. LCX throughout its course and branches was free of disease. RCA: RCA was coming off the right sinus of Valsalva. It was a dominant vessel and provided RPDA. RCA throughout its course and branches was free of disease. Presentation: Patient is a 75-year-old female who presented to the office with occasional chest pains. Past medical history includes hypertension, hyperlipidemia, SVT, chronic respiratory failure on home oxygen secondary to COPD, old history of lower extremity DVT, CKD, rheumatoid arthritis, COPD, history of vertigo, history of urinary obstruction, old history of tonsillectomy/tubal ligation/hysterectomy/nephrostomy and history of pulmonary hypertension/morbid obesity. Does have baseline history of diastolic heart failure. Nuclear stress test of March 2025 was abnormal (anterior/anterolateral ischemia) with ejection fraction of 55%. Echocardiogram of January 2025 revealed ejection fraction of 65-70%, aortic sclerosis with no stenosis and right ventricular systolic pressure 43 mm Hg. Patient was sent for cardiac catheterization Procedure: After obtaining informed consent, the patient was brought to the photo lab technician. She was prepped and draped in sterile fashion. Right radial artery was used for access site. 1 mg of Versed and 25 mcg of fentanyl were used for moderate sedation. Using Seldinger technique, the right radial artery was accessed and a 6 [place] slender sheath was inserted into it. 2.5 mg of verapamil and 100 mcg of nitroglycerin were given as a cocktail into right radial sheath. 5000 units of heparin was given peripherally. A 5 [place] tiger 4 diagnostic catheter was used to perform left heart catheterization (obtaining pressures and performing left ventriculography) and bilateral coronary angiography. There was no indication for any transcatheter revascularization. Total bleeding was less than 5 mL. There was no dissection/hematoma/perforation. Patient tolerated the procedure with no complication. Right radial artery access site was managed by deploying a TR band. Fluoroscopy time: 3.0 minutes contrast: 25 mL of Visipaque SIMBA RAMIRES MD Jul 01, 2025 08:51
[2025-07-01] MEDS ORDERED: POM NEB (09:21)
== END 2025-07-01 11:20 | disposition home or self-care (01) ==
LOC: CATH 06:37
PROVIDERS: ATTEND Internal Medicine Cardiovascular Disease
DX: R07.89 Other chest pain (principal); I77.1 Stricture of artery; I50.32 Chronic diastolic (congestive) heart failure; I27.20 Pulmonary hypertension, unspecified; I13.0 Hypertensive heart and chronic kidney disease with heart failure and stage 1 through stage 4 chronic kidney disease, or unspecified chronic kidney disease; I70.0 Atherosclerosis of aorta; E78.5 Hyperlipidemia, unspecified; E66.01 Morbid (severe) obesity due to excess calories; J44.9 Chronic obstructive pulmonary disease, unspecified; J96.10 Chronic respiratory failure, unspecified whether with hypoxia or hypercapnia; M06.9 Rheumatoid arthritis, unspecified; N18.9 Chronic kidney disease, unspecified; Z86.718 Personal history of other venous thrombosis and embolism; Z99.81 Dependence on supplemental oxygen; Z90.710 Acquired absence of both cervix and uterus
CPT/HCPCS: 93458; C1894; J1644; J2250; J3010; J7030; Q9967; 99152